=== PATIENT | female | born 1970 ===

== ENCOUNTER 2020-02-27 12:00 | Emergency (ER) | payer OTHER, SELFPAY ==
[2020-02-27 13:36] VITALS: BP 168/113; PULSE 74; RESP 16; TEMP 36; O2SAT 99; BMI 29.0
[2020-02-27 14:58] LABS: Glucose Urine UA NEG (NEG); Leukocyte Esterase Urine NEG (NEG); Nitrite Urine NEG (NEG); Urine Blood NEG (NEG); Urine Ketones NEG (NEG); Urine Protein NEG (NEG-TRACE)
[2020-02-27 15:02] LABS: Appearance Urine CLEAR; Color Urine YELLOW
== END 2020-02-27 14:21 | disposition left against medical advice (07) ==
LOC: HO.ED 03-02 07:27
PROVIDERS: Emergency Provider Emergency Medicine; PCP Emergency Medicine
DX: R10.9 Unspecified abdominal pain (principal); R68.83 Chills (without fever)
CPT/HCPCS: 81003; 99282; 99283

== ENCOUNTER 2020-03-02 09:58 | Outpatient (REF) | payer OTHER, SELFPAY ==
--- NOTE | 2020-03-02 10:26 | US_ITS ---
EXAMINATION: US RENAL CLINICAL INFORMATION: Renal stones. COMPARISON: Renal ultrasound dated 09/09/2019. TECHNIQUE: Real-time imaging of the kidneys and bladder. FINDINGS: RIGHT KIDNEY: 10.3 x 5.2 x 4.7 cm (SAG x AP x TRV). An echogenic focus in the upper pole measures 0.5 cm. A lower pole echogenic focus measures 0.5 cm. No hydronephrosis. LEFT KIDNEY: 9.9 x 5.1 x 5 cm (SAG x AP x TRV). An interpolar echogenic focus measures 0.6 cm. IMPRESSION: Nonobstructing intrarenal calculi bilaterally as detailed above..
== END 2020-03-02 09:59 | disposition home or self-care (01) ==
LOC: HO.US 09:58
PROVIDERS: Visit Provider Urology
DX: N20.0 Calculus of kidney (principal)
CPT/HCPCS: 76775

== ENCOUNTER 2020-05-25 12:58 | Outpatient (REF) | payer OTHER, SELFPAY ==
--- NOTE | 2020-05-25 13:05 | XR_ITS ---
EXAMINATION: XR KNEE, LEFT CLINICAL INFORMATION: Left knee pain COMPARISON: Radiographs left knee 03/15/2019 TECHNIQUE: Four views of the left knee. FINDINGS: There is no fracture, dislocation, or suprapatellar effusion. Hoffa's fat pad appears normal. There is no focal joint narrowing or erosive change or chondrocalcinosis. Bony mineralization appears normal. XR/XR knee LT 4V IMPRESSION: Unremarkable left knee.
== END 2020-05-25 12:59 | disposition home or self-care (01) ==
LOC: HO.XRAY 12:58
PROVIDERS: PCP Registered Nurse Community Health; Visit Provider Registered Nurse Community Health
DX: M25.562 Pain in left knee (principal)
CPT/HCPCS: 73564

== ENCOUNTER → 2020-06-15 09:26 | Outpatient (BNVA) | payer OTHER, SELFPAY | PROVIDERS: PCP Emergency Medicine; Visit Provider Orthopaedic Surgery | DX: M22.2X2 Patellofemoral disorders, left knee (principal) | CPT/HCPCS: 99202 ==

== ENCOUNTER 2020-07-06 12:31 | Outpatient (REF) | payer OTHER, SELFPAY ==
--- NOTE | ~2020-07-06 | CT_ITS ---
EXAMINATION: CT ABDOMEN AND PELVIS WITHOUT AND WITH CONTRAST CLINICAL INFORMATION: Interstitial cystitis COMPARISON: Previous renal ultrasound most recent February [address] of the abdomen and pelvis May 2018 TECHNIQUE: Multidetector volumetric imaging was performed of the abdomen and pelvis before and after the IV administration of 85 mL of Omnipaque 300 intravenous contrast. Sagittal and coronal reformatted images were obtained on the technologist's workstation. This CT examination was performed using dose optimization techniques as appropriate, variously including the following: *Automated exposure control *Adjustment of mA and/or kV according to patient size (this includes techniques or standardized protocols for targeted exams where dose is matched to indication/reason for exam; i.e. extremities or head) *Use of iterative reconstruction technique DLP: 754 mGy-cm FINDINGS: LUNG BASES: The visualized lung bases are unremarkable. LIVER, GALLBLADDER, AND BILIARY TREE: The liver is normal in size, shape, and attenuation. No focal hepatic lesion or biliary ductal dilatation is present. There are small gallstones in the gallbladder. PANCREAS: Unremarkable SPLEEN: Unremarkable ADRENAL GLANDS: Unremarkable KIDNEYS AND URETERS: There are small bilateral renal stones. There are 4 2 mm stones in the right kidney, 3 in the upper pole and one in the lower pole. There are 2 small adjacent 2 mm stones in the upper pole the left kidney and question third 1 mm stone in the upper pole. No hydronephrosis, ureteral dilatation or ureteral stone is seen. There 2 small 5 mm mm low-attenuation lesions in the lower pole of the right kidney and upper pole of the left kidney. These are too small to definitively characterize but probably represent small cysts. BLADDER: The bladder is not optimally distended but appears unremarkable. The bladder wall does not appear thickened. GASTROINTESTINAL TRACT: There is stool throughout the colon suggestive of constipation. There is mild diverticulosis of the colon. No dilated loops of bowel to suggest obstruction are seen. The appendix is unremarkable. The stomach ABDOMINAL WALL: No significant hernia is appreciated. LYMPH NODES: Normal VASCULAR: Unremarkable PELVIC VISCERA: The uterus appears to have been removed. No pelvic mass is seen. OSSEOUS STRUCTURES: There are degenerative changes at the hip joints. CT/CT abdomen pelvis wo/w con IMPRESSION: Small bilateral renal stones. Stool throughout the colon suggestive of constipation. Gallstones.
[2020-07-06] MEDS: iohexoL 350 MG/ML 100 ML INFUS..BTL IV (15:21)
[2020-07-06] MEDS: Barium Sulfate Oral (Berry) 450 ML ORAL.SUSP 900 ML PO (15:21)
== END 2020-07-06 12:32 | disposition home or self-care (01) ==
LOC: HO.CT 12:31
PROVIDERS: Visit Provider Registered Nurse Community Health
DX: R10.30 Lower abdominal pain, unspecified (principal); N30.10 Interstitial cystitis (chronic) without hematuria
CPT/HCPCS: 74178; Q9967

== ENCOUNTER → 2020-08-19 13:15 | Outpatient (BNVA) | payer OTHER, SELFPAY | PROVIDERS: PCP Registered Nurse Community Health; Visit Provider Internal Medicine Gastroenterology | DX: Z13.89 Encounter for screening for other disorder (principal) | CPT/HCPCS: Q3014 ==

== ENCOUNTER 2020-10-06 13:05 | Outpatient (REF) | payer OTHER, SELFPAY ==
--- NOTE | ~2020-10-06 | MM_ITS ---
EXAMINATION: MM SCREENING DIGITAL BREAST TOMOSYNTHESIS, BILATERAL CLINICAL INFORMATION: Screening. Asymptomatic. The lifetime risk of breast cancer based on the Tyrer-Cuzick Model is 7%. COMPARISON: Mammography: 07/19/2019, 08/30/2017, 05/26/2016 TECHNIQUE: Digital breast tomosynthesis is performed in both the craniocaudal and mediolateral oblique views along with computer-aided detection (CAD). Synthesized 2D images are generated from the tomosynthesis. FINDINGS: There are scattered areas of fibroglandular density (ACR BI-RADS breast composition Category b). There are no significant masses, abnormal calcifications, or other abnormalities. The axilla and skin contours are unremarkable. There are no significant changes from prior studies. MM/MM tomosynthesis screening BI IMPRESSION: No mammographic evidence of malignancy. ASSESSMENT: BI-RADS 1: Negative RECOMMENDATION: Routine annual mammography screening. This patient's information was entered into a reminder system with a target due date for their next mammogram.
== END 2020-10-06 13:06 | disposition home or self-care (01) ==
LOC: HO.MAMMO 13:05
PROVIDERS: PCP Registered Nurse Community Health; Visit Provider Registered Nurse Community Health
DX: Z12.31 Encounter for screening mammogram for malignant neoplasm of breast (principal)
CPT/HCPCS: 77063; 77067; 99212

== ENCOUNTER 2020-12-28 10:44 | Outpatient (REF) | payer OTHER, SELFPAY ==
[2020-12-28 13:17] LABS: MANUAL DIFF FLAG NO
[2020-12-28 13:24] LABS: Eosinophils Absolute Auto 0.2 X10*3/uL (0.0-0.4); Eosinophils Percent Auto 3.9 % (0-4); Hematocrit 43.2 % (37-47); Hemoglobin 13.8 g/dl (12.0-16.0); Imm Gran Abs Auto 0.01 X10*3/uL (0.00-0.03); Imm Gran Pct Auto 0.3 % (0.0-0.4); Lymphocytes Absolute Auto 1.3 X10*3/uL (1.2-4.9); Lymphocytes Percent Auto 33.1 % (20-40); Mean Corpuscular HGB Conc 31.9 g/dl (31.0-35.0); Mean Corpuscular Hemoglobin 27.8 pg (27.0-33.0); Mean Corpuscular Volume 86.9 fL (80-98); Monocytes Absolute Auto 0.3 X10*3/uL (0.1-1.2); Monocytes Percent Auto 8.1 % (2-11); Neutrophils Absolute Auto 2.1 X10*3/uL (2.0-8.3); Neutrophils Percent Auto 53.6 % (45-73); Platelet Count 217 X10*3/uL (160-400); Red Blood Count 4.97 X10*6/uL (4.20-5.50); Red Cell Distribution Width 12.6 % (11.0-16.0); White Blood Count 3.8 X10*3/uL (4.8-10.8)
[2020-12-28 13:52] LABS: Alanine Aminotransferase 36 U/L (0-31); Albumin Level 4.3 g/dL (3.5-5.0); Alkaline Phosphatase 86 U/L (39-117); Anion Gap 14 (12-20); Aspartate Amino Transferase 29 U/L (5-31); Bilirubin Total 0.7 mg/dL (0.0-1.0); Blood Urea Nitrogen 13 mg/dL (9-16); Calcium 10.4 mg/dL (8.4-10.2); Carbon Dioxide 26 mmol/L (22-29); Chloride 105 mmol/L (96-108); Estimated Glomerular Filt Rate 49; Glucose Random 81 mg/dL (60-115); Sodium 140 mmol/L (135-145); Total Protein 7.3 g/dL (6.5-8.0)
== END 2020-12-28 10:45 | disposition home or self-care (01) ==
LOC: HO.LAB 10:44
PROVIDERS: PCP Registered Nurse Community Health; Visit Provider Nurse Practitioner
DX: Z01.818 Encounter for other preprocedural examination (principal); K52.9 Noninfective gastroenteritis and colitis, unspecified
CPT/HCPCS: 36415; 80053; 85025; 99212

== ENCOUNTER 2021-01-29 11:35 | Emergency (ER) | payer OTHER, SELFPAY ==
--- NOTE | ~2021-01-29 | CT_ITS ---
EXAMINATION: CT ANGIOGRAM NECK WITH CONTRAST CT ANGIOGRAM BRAIN WITH CONTRAST CLINICAL INFORMATION: Left-sided weakness. COMPARISON: Noncontrast head CT performed just prior. TECHNIQUE: Test bolus sequences followed by intravenous administration 100 mL of Omnipaque 350. Helical imaging was performed in the axial plane from the thoracic inlet to the skull vertex. Delayed postcontrast imaging of the head was also performed. The data was processed at the angiography technologist workstation for generation of MIP sequences. Angled MIPs and volume rendered reformatted images were also generated at an offline 3D workstation. Stenoses are assessed in accordance with NASCET criteria unless otherwise indicated. This CT examination was performed using dose optimization techniques as appropriate, variously including the following: *Automated exposure control *Adjustment of mA and/or kV according to patient size (this includes techniques or standardized protocols for targeted exams where dose is matched to indication/reason for exam; i.e. extremities or head) *Use of iterative reconstruction technique DLP: 1277 mGy-cm FINDINGS: Head CT: No intracranial hemorrhage, extra-axial collection, mass effect, or definite territorial infarction is seen. Patchy and partly confluent areas of hypoattenuation are seen within the cerebral white matter presumably reflecting chronic microangiopathy. There is no well-defined is cytotoxic edema at this time. No abnormal enhancement is seen. The dural venous sinuses are normally opacified. The ventricles are normal in size and configuration without evidence of hydrocephalus. There is a mucosal retention cyst along the left maxillary sinus floor. Neck CTA: The aortic arch and great vessel origins are patent. The bilateral common and internal carotid arteries are patent. Minimal atheromatous changes are seen at the carotid bifurcations but without associated stenosis. The cervical segments of both internal carotid arteries are widely patent. No carotid siphon stenosis is seen. The bilateral vertebral arteries appear codominant and are patent. Head CTA: The anterior and posterior circulations are patent. Mild atheromatous changes with no more than mild luminal narrowing. No aneurysm is seen. Non-vascular findings: Left lobe of the thyroid gland is expanded by 2.9 cm hypodense nodule which extends into the upper portion of the mediastinum. The imaged portions of the upper lungs are clear. CT/CT angio head neck IMPRESSION: CT head: No intracranial hemorrhage or large acute infarction. Background changes of chronic microangiopathy. CTA neck: No hemodynamically significant stenosis in the major arteries of the neck. CTA head: No large vessel occlusion or significant stenosis within the intracranial circulation. Additional findings: Nodule in the left lobe of the thyroid gland measuring 2.9 cm for which dedicated thyroid ultrasound is recommended based on size criteria. This critical result was discussed with Dr. Hong on 01/29/2021 1:39 PM, and it was ascertained that the content and urgency of the report was understood at the time of direct communication.
--- NOTE | ~2021-01-29 | CT_ITS ---
EXAMINATION: CT HEAD WITHOUT CONTRAST CLINICAL INFORMATION: Left-sided weakness COMPARISON: None TECHNIQUE: Contiguous axial imaging was performed from the skull base to vertex without intravenous administration of contrast. This CT examination was performed using dose optimization techniques as appropriate, variously including the following: *Automated exposure control *Adjustment of mA and/or kV according to patient size (this includes techniques or standardized protocols for targeted exams where dose is matched to indication/reason for exam; i.e. extremities or head) *Use of iterative reconstruction technique DLP: 578 mGy-cm FINDINGS: There is some faint diminished density which is asymmetric adjacent to the anterior right lateral ventricle involving the subcortical white matter of the right frontal lobe. This is somewhat more prominent than other regions of periventricular white matter low density and may represent an evolving infarct. There is no evidence of acute intracranial hemorrhage. No abnormal mass effect or midline shift is seen. Flores to white matter differentiation is well preserved. No extra-axial fluid collections are identified. The ventricles are normal in size. There is bilateral periventricular white matter low density consistent with microangiopathy. The osseous structures and soft tissues are normal. The mastoid air cells and visualized portions of the paranasal sinuses are well aerated. CT/CT head/brain wo con IMPRESSION: Findings consistent with microangiopathy. Somewhat asymmetric region of low density in subcortical white matter of the right frontal lobe. This may represent evolving infarct.
[2021-01-29 11:38] VITALS: BP 136/103; PULSE 84; RESP 18; TEMP 36.1; O2SAT 97; BMI 26.9
--- NOTE | 2021-01-29 11:43 | ED_ITS ---
HPI - Neuro Symptoms/Deficit General Chief Complaint: Extremity Problem Stated Complaint: WEAKNESS Time Seen by Provider: 01/29/21 11:38 Source: patient Mode of arrival: ambulatory Limitations: no limitations History of Present Illness Onset (ago): hour(s) (over 24 hours ago) Location: left arm and left leg History of same: No Severity: moderate Quality: weak and tingling Relieving factors: none Exacerbating factors: none Context: sudden onset (woke up this way) On Anticoagulants: No Associated symptoms: denies other symptoms (no precipitating event no pain no trauma no neck injury no prior episodes of this) Treatments Prior to Arrival: none Related Data Home Medications Medication Instructions Recorded Confirmed gabapentin 300 mg capsule 300 mg PO DAILY 06/15/20 08/19/20 cyclobenzaprine 10 mg tablet 10 mg PO TID 10/06/20 Previous Rx's Medication Instructions Recorded bisacodyl 5 mg tablet,delayed 10 mg PO BEDTIME 2 Days #4 tab 12/28/20 release (Dulcolax (bisacodyl)) peg 3350-electrolytes 236 240 ml PO Q10M 1 Days #4000 ml 12/28/20 gram-22.74 gram-6.74 gram-5.86 gram solution (Golytely) pentosan polysulfate sodium 100 mg 200 mg PO BID 30 Days #120 cap 12/28/20 capsule (Elmiron) Allergies Allergy/AdvReac Type Severity Reaction Status Date / Time trimethoprim [From Bactrim] Allergy Mild HIVES Verified 12/28/20 10:59 Sulfa (Sulfonamide Allergy Unknown Hives Verified 12/28/20 10:59 Antibiotics) Review of Systems Review of Systems: Constitutional : No Weight loss, No Fever, No Chills, No Fatigue, No Malaise ENT/Mouth : No sore throat, No Rhinorrhea Eyes: No Eye Pain, No Swelling, No Redness Cardiovascular : No Chest Pain, No SOB, No Dyspnea on Exertion, No Orthopnea, No Edema, No Palpitations Respiratory : No Cough, No Sputum, No Wheezing Gastrointestinal : No Nausea, No Vomiting, No Diarrhea, No Constipation, No abdominal Pain, No Hematochezia, No Melena Genitourinary : No Dysuria, No Urinary Frequency, No Hematuria, Musculoskeletal : No joint pain, No Myalgias, No Joint Swelling Skin : No Skin Lesions, No rash Neuro : pos Weakness, pos Numbness, No Dizziness, No Headache Psych : No Anxiety/Panic, No Depression Heme/Lymph: No Bruising, No Bleeding,No Lymphadenopathy Endocrine : No Polyuria, No Polydipsia All other systems reviewed and are negative [facility] Past Medical History Attestation statement: The following information was validated with the patient. 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 Father No problems noted. Social History Social History (Updated 01/29/21 @ 11:43 by Leandra Hong DO) Household Members: None Alcohol intake: never Patient Tobacco Use Status: Never used Tobacco Advance Directives: No Advance Directives Information Provided: Yes Current occupational status: disabled Current occupation: right handed Physical Exam Vital Signs: Vital Signs: Last Vital Signs Temp 97.0 F 01/29/21 11:38 Pulse 73 01/29/21 13:58 Resp 18 01/29/21 13:58 BP 144/96 H 01/29/21 13:58 Pulse Ox 99 01/29/21 13:58 Body Mass Index 26.9 Appearance: Alert. Oriented X3. No acute distress. Flat affect Eyes: Pupils equal, round and reactive to light. ENT: Pharynx normal. Neck: Normal inspection. Neck supple. CVS: Normal heart rate and rhythm. Pulses normal. Respiratory: No respiratory distress. Breath sounds normal. Abdomen: Soft and non-tender. Skin: Skin warm and dry. Normal skin color. Normal skin turgor. Extremities: No lower extremity edema. No calf ttp Neuro: Oriented X 3. LUE and LLE 4/5 some drift LUE, reports tingling forearm down to LUE, CN2-12 intact. Course Course Course Narrative: call from Radiology 137pm - no acute LVO, vessels are open. nodule in thyroid gland MRI ordered given her symptoms and age, also initial CT showed abnormality patient aware of CT scan findings and my concern for stroke - she states she will not stay and wait for MRI, we offered food, pain medications for her arthritis but she states she still wont' stay. she is alert and oriented x 3, answering questions appropriately. States she will talk to her doctor about outpatient MRI agrees to take baby aspirin at home. She notes she is aware we are worried in regards to stroke MDM - Neuro Symptoms/Deficit MDM Narrative Medical decision making narrative: 50 yo female with hx of IBS comes in with 24+ hours of L sided UE and LE weakness denies trauma denies neck strain. Reports tingling in L forearm. She is withdrawn and has a flat affect. At this time labs, CT and CTA for stroke ordered, possible stroke vs other pathology - dispo per results and findings. Given duration of symptoms a minimum known 24 hours of onset she is not a candidate for tPa or thrombectomy. Patient didn't get evaluated yesterday as she hoped her symptoms would go away Lab Data Result diagrams: 01/29/21 12:32 01/29/21 12:32 Labs: Lab Results 01/29/21 01/29/21 01/29/21 Range/Units 12:31 12:31 12:31 WBC (4.8-10.8) X10*3/uL RBC (4.20-5.50) X10*6/uL Hgb (12.0-16.0) g/dl Hct (37-47) % MCV (80-98) fL MCH (27.0-33.0) pg MCHC (31.0-35.0) g/dl RDW (11.0-16.0) % Plt Count (160-400) X10*3/uL MPV (9.4-12.3) fL Immature Gran % (Auto) (0.0-0.4) % Neut % (Auto) (45-73) % Lymph % (Auto) (20-40) % [place] % (Auto) (2-11) % Eos % (Auto) (0-4) % Baso % (Auto) (0-2) % Lymph # (Auto) (1.2-4.9) X10*3/uL [place] # (Auto) (0.1-1.2) X10*3/uL Eos # (Auto) (0.0-0.4) X10*3/uL Baso # (Auto) (0.0-0.2) X10*3/uL Abs Immat Gran (auto) (0.00-0.03) X10*3/uL Absolute Neuts (auto) (2.0-8.3) X10*3/uL Absolute Nucleated RBC (0.0-0.012) X10*3/uL Nucleated RBC % (auto) (0.0-0.2) /100WBC ESR 13 (0-20) MM/HR PT 12.0 (9.9-13.0) SEC INR 1.1 (0.9-1.1) APTT 42.3 H (24.1-38.0) SEC Sodium (135-145) mmol/L Potassium (3.3-5.1) mmol/L Chloride (96-108) mmol/L Carbon Dioxide (22-29) mmol/L Anion Gap (12-20) BUN (9-16) mg/dL Creatinine (0.5-1.4) mg/dL Estim Creat Clear Calc Estimated GFR Random Glucose (60-115) mg/dL Calcium (8.4-10.2) mg/dL Magnesium (1.6-2.6) mg/dL Total Bilirubin (0.0-1.0) mg/dL Direct Bilirubin (0.0-0.5) mg/dL AST (5-31) U/L ALT (0-31) U/L Alkaline Phosphatase (39-117) U/L Troponin I High Sens (<3.5-17.0) ng/L C-Reactive Protein (< or = 0.50) mg/dL Total Protein (6.5-8.0) g/dL Albumin (3.5-5.0) g/dL Lipase (8-78) U/L TSH (0.32-4.0) uIU/mL COVID-19 ([facility]) Negative (Negative) COVID-19 Clin Com See Note 01/29/21 01/29/21 01/29/21 Range/Units 12:32 12:32 12:32 WBC 3.7 L (4.8-10.8) X10*3/uL RBC 4.82 (4.20-5.50) X10*6/uL Hgb 13.8 (12.0-16.0) g/dl Hct 41.3 (37-47) % MCV 85.7 (80-98) fL MCH 28.6 (27.0-33.0) pg MCHC 33.4 (31.0-35.0) g/dl RDW 12.8 (11.0-16.0) % Plt Count 189 (160-400) X10*3/uL MPV 10.7 (9.4-12.3) fL Immature Gran % (Auto) 0.3 (0.0-0.4) % Neut % (Auto) 52.0 (45-73) % Lymph % (Auto) 33.4 (20-40) % [place] % (Auto) 9.2 (2-11) % Eos % (Auto) 4.3 H (0-4) % Baso % (Auto) 0.8 (0-2) % Lymph # (Auto) 1.2 (1.2-4.9) X10*3/uL [place] # (Auto) 0.3 (0.1-1.2) X10*3/uL Eos # (Auto) 0.2 (0.0-0.4) X10*3/uL Baso # (Auto) 0.0 (0.0-0.2) X10*3/uL Abs Immat Gran (auto) 0.01 (0.00-0.03) X10*3/uL Absolute Neuts (auto) 1.9 L (2.0-8.3) X10*3/uL Absolute Nucleated RBC 0.000 (0.0-0.012) X10*3/uL Nucleated RBC % (auto) 0.0 (0.0-0.2) /100WBC ESR (0-20) MM/HR PT (9.9-13.0) SEC INR (0.9-1.1) APTT (24.1-38.0) SEC Sodium 141 (135-145) mmol/L Potassium 5.2 H (3.3-5.1) mmol/L Chloride 108 (96-108) mmol/L Carbon Dioxide 25 (22-29) mmol/L Anion Gap 13 (12-20) BUN 19 H (9-16) mg/dL Creatinine 1.11 (0.5-1.4) mg/dL Estim Creat Clear Calc 55.8 Estimated GFR 52 Random Glucose 96 (60-115) mg/dL Calcium 10.2 (8.4-10.2) mg/dL Magnesium 2.1 (1.6-2.6) mg/dL Total Bilirubin 0.8 (0.0-1.0) mg/dL Direct Bilirubin 0.2 (0.0-0.5) mg/dL AST 28 (5-31) U/L ALT 21 (0-31) U/L Alkaline Phosphatase 80 (39-117) U/L Troponin I High Sens (<3.5-17.0) ng/L C-Reactive Protein (< or = 0.50) mg/dL Total Protein 6.9 (6.5-8.0) g/dL Albumin 4.1 (3.5-5.0) g/dL Lipase 23 (8-78) U/L TSH 0.84 (0.32-4.0) uIU/mL COVID-19 ([facility]) (Negative) COVID-19 Clin Com 01/29/21 01/29/21 Range/Units 12:32 12:32 WBC (4.8-10.8) X10*3/uL RBC (4.20-5.50) X10*6/uL Hgb (12.0-16.0) g/dl Hct (37-47) % MCV (80-98) fL MCH (27.0-33.0) pg MCHC (31.0-35.0) g/dl RDW (11.0-16.0) % Plt Count (160-400) X10*3/uL MPV (9.4-12.3) fL Immature Gran % (Auto) (0.0-0.4) % Neut % (Auto) (45-73) % Lymph % (Auto) (20-40) % [place] % (Auto) (2-11) % Eos % (Auto) (0-4) % Baso % (Auto) (0-2) % Lymph # (Auto) (1.2-4.9) X10*3/uL [place] # (Auto) (0.1-1.2) X10*3/uL Eos # (Auto) (0.0-0.4) X10*3/uL Baso # (Auto) (0.0-0.2) X10*3/uL Abs Immat Gran (auto) (0.00-0.03) X10*3/uL Absolute Neuts (auto) (2.0-8.3) X10*3/uL Absolute Nucleated RBC (0.0-0.012) X10*3/uL Nucleated RBC % (auto) (0.0-0.2) /100WBC ESR (0-20) MM/HR PT (9.9-13.0) SEC INR (0.9-1.1) APTT (24.1-38.0) SEC Sodium (135-145) mmol/L Potassium (3.3-5.1) mmol/L Chloride (96-108) mmol/L Carbon Dioxide (22-29) mmol/L Anion Gap (12-20) BUN (9-16) mg/dL Creatinine (0.5-1.4) mg/dL Estim Creat Clear Calc Estimated GFR Random Glucose (60-115) mg/dL Calcium (8.4-10.2) mg/dL Magnesium (1.6-2.6) mg/dL Total Bilirubin (0.0-1.0) mg/dL Direct Bilirubin (0.0-0.5) mg/dL AST (5-31) U/L ALT (0-31) U/L Alkaline Phosphatase (39-117) U/L Troponin I High Sens 11.2 (<3.5-17.0) ng/L C-Reactive Protein 0.17 (< or = 0.50) mg/dL Total Protein (6.5-8.0) g/dL Albumin (3.5-5.0) g/dL Lipase (8-78) U/L TSH (0.32-4.0) uIU/mL COVID-19 ([facility]) (Negative) COVID-19 Clin Com ECG Data Attestation: I personally reviewed and interpreted this ECG as follows: ECG interpretation date: 01/29/21 ECG interpretation time: 12:04 Interpretation: Rate: 70 Rhythm: NSR [place]: normal Normal P waves. Normal TELMA. Normal QRS complex. ST T wave : no NIA, normal qTC: normal prior studies: no acute ischemia The study has been interpreted contemporaneously by me. . NIH Stroke Scale Internal: Initial- Upon Arrival Level of Consciousness: Alert Level of Consciousness Questions: Answers both questions correctly Level of Consciousness Commands: Performs both tasks correctly Best Gaze: Normal Visual: No visual loss Facial Palsy: Normal Motor Arm (Right): No drift Motor Arm (Left): Drift Motor Leg (Right): No drift Motor Leg (Left): Drift Limb Ataxia: Absent Sensory: Mild to moderate sensory loss Best Language: No aphasia Dysarthia: Normal Extinction and Inattention: No abnormality Score: 3 Discharge Plan Discharge Clinical Impression: Acute left-sided muscle weakness, Arm paresthesia, left, Microangiopathy Patient Disposition: Home, Self-Care Instructions: Paresthesia (ED), Weakness (ED) Additional Instructions: Nodule in the left lobe of the thyroid gland measuring 2.9 cm for which dedicated thyroid ultrasound is recommended based on size criteria. please have your doctor order this non-emergent test it was recommended you get a MRI of your brain given your CT scans are abnormal and there is a real concern for stroke. You refused to take the test in the Emergency Department. Please take an aspirin daily. Your presentation was very concerning for a stroke but you refused further testing in the Emergency Department to confirm. Prescriptions: No Action Elmiron 100 mg capsule 200 mg PO BID 30 Days Qty: 120 RF: 6 gabapentin 300 mg capsule 300 mg PO DAILY RF: 0 cyclobenzaprine 10 mg tablet 10 mg PO TID RF: 0 peg 3350-electrolytes [Golytely] 236-22.74-6.74 -5.86 gram recon soln 240 ml PO Q10M 1 Days Qty: 4000 RF: 0 bisacodyl [Dulcolax (bisacodyl)] 5 mg tablet,delayed release (DR/EC) 10 mg PO BEDTIME 2 Days Qty: 4 RF: 0 Referrals: Kamala Gregory NP [Primary Care Provider] - 2 days (please call today or Monday you need a MRI of your brain)
--- NOTE | 2021-01-29 11:44 | ECG_ITS ---
Test Reason : WEAKNESS Blood Pressure : / mmHG Vent. Rate : 070 BPM Atrial Rate : 070 BPM P-R Int : 128 ms QRS Dur : 090 ms QT Int : 408 ms P-R-T Axes : 042 024 020 degrees QTc Int : 440 ms Normal sinus rhythm Possible Left atrial enlargement Borderline ECG When compared with ECG of 04-APR-2017 13:27, Heart rate has increased Nonspecific T wave abnormality is no longer Present Referred By: Leandra Hong Electronically Signed By:HAILEY LANDA
--- NOTE | 2021-01-29 12:36 | PC.NURSE ---
IV placed and labs obtained. Pt notified that the next step is CT scan.
[2021-01-29 12:41] LABS: MANUAL DIFF FLAG NO
[2021-01-29 12:43] LABS: Basophils Percent Auto 0.8 % (0-2); Eosinophils Absolute Auto 0.2 X10*3/uL (0.0-0.4); Eosinophils Percent Auto 4.3 % (0-4); Hematocrit 41.3 % (37-47); Hemoglobin 13.8 g/dl (12.0-16.0); Imm Gran Abs Auto 0.01 X10*3/uL (0.00-0.03); Imm Gran Pct Auto 0.3 % (0.0-0.4); Lymphocytes Absolute Auto 1.2 X10*3/uL (1.2-4.9); Lymphocytes Percent Auto 33.4 % (20-40); Mean Corpuscular HGB Conc 33.4 g/dl (31.0-35.0); Mean Corpuscular Hemoglobin 28.6 pg (27.0-33.0); Mean Corpuscular Volume 85.7 fL (80-98); Mean Platelet Volume 10.7 fL (9.4-12.3); Monocytes Absolute Auto 0.3 X10*3/uL (0.1-1.2); Monocytes Percent Auto 9.2 % (2-11); Neutrophils Absolute Auto 1.9 X10*3/uL (2.0-8.3); Platelet Count 189 X10*3/uL (160-400); Red Blood Count 4.82 X10*6/uL (4.20-5.50); Red Cell Distribution Width 12.8 % (11.0-16.0); White Blood Count 3.7 X10*3/uL (4.8-10.8)
[2021-01-29 12:49] LABS: INTERNATIONAL NORM RATIO 1.1 (0.9-1.1)
[2021-01-29 12:51] LABS: Partial Thromboplastin Time 42.3 SEC (24.1-38.0)
[2021-01-29 13:01] LABS: Anion Gap 13 (12-20); Blood Urea Nitrogen 19 mg/dL (9-16); C Reactive Protein 0.17 mg/dL (< or = 0.50); Calcium 10.2 mg/dL (8.4-10.2); Carbon Dioxide 25 mmol/L (22-29); Chloride 108 mmol/L (96-108); Creatinine Clr Calc Pharmacy 55.8; Estimated Glomerular Filt Rate 52; Glucose Random 96 mg/dL (60-115); Potassium 5.2 mmol/L (3.3-5.1); Sodium 141 mmol/L (135-145)
[2021-01-29 13:05] LABS: Troponin-I High Sensitivity 11.2 ng/L (<3.5-17.0)
[2021-01-29 13:07] LABS: Alanine Aminotransferase 21 U/L (0-31); Albumin Level 4.1 g/dL (3.5-5.0); Alkaline Phosphatase 80 U/L (39-117); Aspartate Amino Transferase 28 U/L (5-31); Bilirubin Direct 0.2 mg/dL (0.0-0.5); Bilirubin Total 0.8 mg/dL (0.0-1.0); Lipase 23 U/L (8-78); Magnesium 2.1 mg/dL (1.6-2.6); Total Protein 6.9 g/dL (6.5-8.0)
[2021-01-29] MEDS: iohexoL 350 MG/ML 100 ML INFUS..BTL IV (13:09)
[2021-01-29 13:24] LABS: Erythrocyte Sedimentation Rate 13 MM/HR (0-20)
[2021-01-29 13:24] LABS: TSH reflex Free T4 0.84 uIU/mL (0.32-4.0)
[2021-01-29 13:30] LABS: COVID-19 Test Negative (Negative)
[2021-01-29] MEDS: 0.9 % Sodium Chloride 500 ML IV (13:55)
--- NOTE | 2021-01-29 13:55 | PC.NURSE ---
Pt states that she feels her left hand tingling is improving at this time since she first came in.
[2021-01-29 13:58] VITALS: BP 144/96; PULSE 73; RESP 18; O2SAT 99
--- NOTE | 2021-01-29 15:37 | PC.NURSE ---
Pt left against medical advice. The risks of leaving were explained to her by and this RN. Pt still wished to leave as the wait time was too long. She stated that she was too hungry and cold. Food and more warm blankets offered. Pt declined and stated that there was nothing we could do that would convince her to wait. She stated that though she was happy with her care she just could no longer wait for MRI. Earliest time MRI could take pt was 6pm according to anatomic pathology manager.
== END 2021-01-29 15:37 | disposition home or self-care (01) ==
PROVIDERS: Emergency Provider Emergency Medicine; PCP Registered Nurse Community Health
DX: M62.81 Muscle weakness (generalized) (principal); R20.2 Paresthesia of skin; I73.9 Peripheral vascular disease, unspecified; Z20.822 Contact with and (suspected) exposure to COVID-19
CPT/HCPCS: 36415; 70450; 70496; 70498; 80048; 80076; 83690; 83735; 84443; 84484; 85025; 85610; 85652; 85730; 86140; 87635; 93005; 96360; 99284; 99285; Q9967

== ENCOUNTER 2021-02-03 15:51 | Outpatient (REF) | payer OTHER, SELFPAY ==
--- NOTE | ~2021-02-03 | US_ITS ---
EXAMINATION: US RETROPERITONEAL LIMITED (RENAL ONLY) CLINICAL INFORMATION: Calculus kidney. COMPARISON: CT abdomen and pelvis 07/06/2020. Renal ultrasound 03/02/2020 and 09/09/2019. KUB 08/28/2019 and 10/10/2018. TECHNIQUE: Real-time imaging of the kidneys. FINDINGS: RIGHT KIDNEY: 9.5 x 5.2 x 3.7 cm (SAG x AP x TRV). The kidney is normal in size, contour, and echogenicity. Renal cortical thickness is normal. There is a 3 mm echogenic density in the lower pole suggestive of a stone. No focal parenchymal lesions or hydronephrosis. LEFT KIDNEY: 9.9 x 4.0 x 3.5 cm (SAG x AP x TRV). The kidney is normal in size, contour, and echogenicity. Renal cortical thickness is normal. There are 3 mm echogenic densities in the mid and lower pole suggestive of stones. No focal parenchymal lesions or hydronephrosis. US/US renal BI IMPRESSION: Small bilateral renal stones.
== END 2021-02-03 15:52 | disposition home or self-care (01) ==
LOC: HO.US 15:51
PROVIDERS: Visit Provider Urology
DX: N20.0 Calculus of kidney (principal)
CPT/HCPCS: 76775

== ENCOUNTER 2021-02-17 18:37 | Outpatient (REF) | payer OTHER, SELFPAY ==
--- NOTE | ~2021-02-17 | MR_ITS ---
EXAMINATION: MRI OF THE BRAIN WITHOUT CONTRAST CLINICAL INFORMATION: Left nondominant side hemiplegia. COMPARISON: CTA of the head and neck 01/29/2021. TECHNIQUE: MRI of the brain was obtained using routine sequences without contrast. FINDINGS: There is an area of increased diffusion signal without corresponding low ADC map signal in the right posterior periventricular white matter, with corresponding hyperintense T2 and FLAIR signal. This is consistent with a subacute lesion. No areas of restricted diffusion are demonstrated. No mass effect or midline shift is seen. The ventricles and sulci are commensurately prominent consistent with diffuse volume loss. There are relatively extensive scattered areas of hyperintense T2 and FLAIR signal in the periventricular and subcortical white matter. These are nonspecific and may be consistent with chronic microvascular ischemic change, or with demyelination in the correct clinical setting. No extra-axial fluid collections are seen. The brainstem and cerebellum are normal. No pathologic magnetic susceptibility artifact is identified on the gradient refocused acquisition. The craniovertebral junction, marrow signal, and midline structures are normal. The major intracranial flow-voids at the level of the [place] are preserved. The dural venous sinus flow-voids are maintained. The mastoid air cells are well-aerated. There are retention cysts in the bilateral maxillary sinuses. MR/MR head/brain wo con IMPRESSION: 1. There is an area of increased diffusion signal without restriction in the right posterior periventricular white matter, consistent with a subacute lesion. There are also multiple scattered areas of hyperintense T2 and FLAIR signal in the periventricular and subcortical white matter which may be consistent with chronic microvascular ischemic changes or due to demyelination in the correct clinical setting. There is no evidence of hemorrhage.
== END 2021-02-17 18:38 | disposition home or self-care (01) ==
LOC: HO.MRI 18:37
PROVIDERS: Visit Provider Registered Nurse Community Health
DX: G81.94 Hemiplegia, unspecified affecting left nondominant side (principal)
CPT/HCPCS: 70551

== ENCOUNTER 2021-04-01 09:59 | Outpatient (REF) | payer OTHER, SELFPAY ==
--- NOTE | ~2021-04-01 | US_ITS ---
EXAMINATION: US THYROID CLINICAL INFORMATION: Nontoxic single thyroid nodule COMPARISON: None TECHNIQUE: Linear transducer montgomery-scale and color Doppler examination with attention to the region of the thyroid. FINDINGS: SIZE: Measurements of the thyroid lobes and nodules are given in sagittal, anteroposterior and transverse dimensions respectively. Right Thyroid Lobe: 5.4 x 1.5 x 1.9 cm, volume 8.0 mL. Parenchyma: The gland echotexture is homogeneous. Thyroid vascularity is normal. Left Thyroid Lobe: 5.9 x 2.0 x 1.9 cm, volume 11.7 mL. Parenchyma: The gland echotexture is homogeneous. Thyroid vascularity is normal. Isthmus: 0.5 cm in maximum AP dimension. Estimated total number of nodules greater than or equal to 1 cm: 2. 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 Location: Left lower. Size: 3.1 x 3.1 x 2.8 cm, volume 13.8 mL. Nodule characteristics: Composition: Solid/almost completely solid (2). Echogenicity: Isoechoic (1). Shape: Not taller than wide (0). Margins: Smooth (0). Echogenic Foci: None (0). ACR TI-RADS total points: 3 ACR TI-RADS category: 3 2. Location: Left mid. Size: 0.6 x 0.6 x 0.4 cm, volume 0.07 mL. Nodule characteristics: Composition: Solid (2). Echogenicity: Hypoechoic (2). Shape: Not taller than wide (0). Margins: Smooth (0). Echogenic Foci: None (0). ACR TI-RADS total points: 4 ACR TI-RADS category: 4 3. Location: Left mid. Size: 0.8 x 0.4 x 0.3 cm, volume 0.06 mL. Nodule characteristics: Composition: Solid/almost completely solid (2). Echogenicity: Isoechoic (1). Shape: Not taller than wide (0). Margins: Smooth (0). Echogenic Foci: None (0). ACR TI-RADS total points: 3 ACR TI-RADS category: 3 4. Location: Right mid. Size: 1.4 x 1.0 x 0.7 cm, volume 0.54 mL. Nodule characteristics: Composition: Solid (2). Echogenicity: Hypoechoic (2). Shape: Not taller than wide (0). Margins: Smooth (0). Echogenic Foci: None (0). ACR TI-RADS total points: 4 ACR TI-RADS category: 4 5. Location: Right lower. Size: 0.9 x 0.8 x 0.8 cm, volume 0.30 mL. Nodule characteristics: Composition: Solid (2). Echogenicity: Hypoechoic (2). Shape: Not taller than wide (0). Margins: Smooth (0). Echogenic Foci: None (0). ACR TI-RADS total points: 4 ACR TI-RADS category: 4 NODES: No lymphadenopathy is seen in the tissue surrounding the thyroid gland. US/US thyroid IMPRESSION: Slightly enlarged left lobe. Bilateral nodules. According to the TI RADS criteria, fine-needle aspiration of the largest nodule in the inferior left lobe recommended. ACR TI-RADS RECOMMENDATION REFERENCE: Ultrasound-guided fine-needle aspiration, followup ultrasound, no further follow up. * TR1 (0 point) and TR 2 (2 points): No FNA or follow up * TR3 (3 points): FNA if more than or equal to 2.5 cm in maximum dimension, followup ultrasound in 1, 3 and 5 years if 1.5 to 2.4 cm in maximum dimension. * TR4 (4-6 points): FNA if more than or equal to 1.5 cm in maximum dimension, followup ultrasound in 1, 2, 3 and 5 years if 1 to 1.4 cm in maximum dimension. * TR5 (more than or equal to 7 points): FNA if more than or equal to 1 cm in maximum dimension, followup ultrasound every year for 5 years if 0.5 to 0.9 cm in maximum dimension. * TR3, TR4 or TR5 nodules that are below the size threshold for follow up receive no follow up.
== END 2021-04-01 10:00 | disposition home or self-care (01) ==
LOC: HO.US 09:59
PROVIDERS: Visit Provider Nurse Practitioner Family
DX: E04.1 Nontoxic single thyroid nodule (principal)
CPT/HCPCS: 76536

== ENCOUNTER → 2021-04-15 08:22 | Outpatient (BNVA) | payer OTHER, SELFPAY | PROVIDERS: Visit Provider Urology | DX: Z13.89 Encounter for screening for other disorder (principal) | CPT/HCPCS: Q3014 ==

== ENCOUNTER 2021-04-16 12:59 | Outpatient (REF) | payer OTHER, SELFPAY ==
[2021-04-18 01:21] LABS: Lyme Abs Screen <0.90 index
[2021-04-20 06:10] LABS: Anti Nuclear Antibody Screen NEGATIVE (NEGATIVE)
== END 2021-04-16 13:00 | disposition home or self-care (01) ==
LOC: HO.LAB 12:59
PROVIDERS: PCP Registered Nurse Community Health; Visit Provider Psychiatry & Neurology Neurology
DX: G37.9 Demyelinating disease of central nervous system, unspecified (principal)
CPT/HCPCS: 36415; 86038; 86039; 86617; 86618

== ENCOUNTER 2021-05-03 10:42 | Outpatient (REF) | payer OTHER, SELFPAY | END 2021-05-03 10:43 | disposition home or self-care (01) | LOC: HO.MDS 10:42 | PROVIDERS: PCP Registered Nurse Community Health; Visit Provider Psychiatry & Neurology Neurology | DX: G37.9 Demyelinating disease of central nervous system, unspecified (principal) | CPT/HCPCS: 96365; J2930 ==

== ENCOUNTER 2021-05-04 10:56 | Outpatient (REF) | payer OTHER, SELFPAY | END 2021-05-04 10:57 | disposition home or self-care (01) | LOC: HO.MDS 10:56 | PROVIDERS: PCP Registered Nurse Community Health; Visit Provider Psychiatry & Neurology Neurology | DX: G37.9 Demyelinating disease of central nervous system, unspecified (principal) | CPT/HCPCS: J2930 ==

== ENCOUNTER 2021-05-05 13:27 | Outpatient (REF) | payer OTHER, SELFPAY | END 2021-05-05 13:28 | disposition home or self-care (01) | LOC: HO.MDS 13:27 | PROVIDERS: PCP Registered Nurse Community Health; Visit Provider Psychiatry & Neurology Neurology | DX: G37.9 Demyelinating disease of central nervous system, unspecified (principal) | CPT/HCPCS: 96365; J2930 ==

== ENCOUNTER 2021-05-06 13:41 | Outpatient (REF) | payer OTHER, SELFPAY | END 2021-05-06 13:42 | disposition home or self-care (01) | LOC: HO.MDS 13:41 | PROVIDERS: PCP Registered Nurse Community Health; Visit Provider Psychiatry & Neurology Neurology | DX: G37.9 Demyelinating disease of central nervous system, unspecified (principal) | CPT/HCPCS: 96365; J2930 ==

== ENCOUNTER 2021-05-07 13:19 | Outpatient (REF) | payer OTHER, SELFPAY | END 2021-05-07 13:20 | disposition home or self-care (01) | LOC: HO.MDS 13:19 | PROVIDERS: PCP Registered Nurse Community Health; Visit Provider Psychiatry & Neurology Neurology | DX: G37.9 Demyelinating disease of central nervous system, unspecified (principal) | CPT/HCPCS: 96365; J2930 ==

== ENCOUNTER 2021-05-10 12:53 | Outpatient (REF) | payer OTHER, SELFPAY ==
--- NOTE | ~2021-05-10 | MR_ITS ---
EXAMINATION: MR LUMBAR SPINE WITHOUT CONTRAST CLINICAL INFORMATION: Chronic low back pain and left lower extremity radiculopathy. COMPARISON: MRI dated 07/13/2018. TECHNIQUE: MRI of the lumbar spine was obtained using routine sequences without contrast. FINDINGS: VERTEBRAL BODIES AND PARASPINAL STRUCTURES: The marrow signal is mildly heterogeneous with regions of fatty change. Slight retrosubluxation again evident at the L4-L5 level. No compression fractures are seen. The paraspinal soft tissues appear normal. Left-sided colonic diverticulosis noted. CONUS MEDULLARIS AND CAUDA EQUINA: Normal, terminating at the level of L1-L2. No lower cord signal abnormality is seen. The cauda equina nerve roots are normal. SPINAL LEVELS: L1-L2 and L2-L3: No disc pathology, central canal stenosis, or foraminal narrowing. Mild anterior endplate spurring at the L2-L3 level. L3-L4: Mild disc bulge and mild facet arthropathy without central canal stenosis. Very mild foraminal narrowing. Bulging disc abuts but does not distort the exiting L3 nerve roots. L4-L5: Retrosubluxation and diffuse disc bulge with a posterior annular fissure. Bulging disc impresses upon the L5 nerve roots in the subarticular zones with hypertrophic facet arthropathy, similar to prior imaging. No central canal stenosis. Bulging disc results in mild foraminal encroachment. L5-S1: Disc degeneration and left lateral recess disc extrusion severely compressing the left S1 nerve root, new compared to prior imaging. No central canal stenosis. Moderate left foraminal narrowing. MR/MR lumbar spine wo con IMPRESSION: New left lateral recess disc extrusion at L5-S1 severely compressing the left S1 nerve root. Moderate left foraminal narrowing. Retrosubluxation and mild disc bulge with a posterior annular fissure at the L4-L5 level, similar to prior imaging.
== END 2021-05-10 12:54 | disposition home or self-care (01) ==
LOC: HO.MRI 12:53
PROVIDERS: PCP Registered Nurse Community Health; Visit Provider Psychiatry & Neurology Neurology
DX: M54.16 Radiculopathy, lumbar region (principal)
CPT/HCPCS: 72148

== ENCOUNTER 2021-05-11 10:49 | Outpatient (RCR) | payer OTHER, SELFPAY ==
[2021-05-11 10:57] VITALS: BP 105/79
== END 2021-06-02 10:37 | disposition home or self-care (01) ==
LOC: HO.PT 10:49
PROVIDERS: PCP Registered Nurse Community Health; Visit Provider Registered Nurse Community Health
DX: M54.42 Lumbago with sciatica, left side (principal)
CPT/HCPCS: 97110; 97162

== ENCOUNTER 2021-05-12 10:29 | Outpatient (REF) | payer OTHER, SELFPAY ==
--- NOTE | ~2021-05-12 | US_ITS ---
EXAMINATION: ULTRASOUND-GUIDED FINE-NEEDLE ASPIRATION LEFT THYROID NODULE. CLINICAL INFORMATION: Heterogeneous enlarged 3.1 cm nodule left lower pole. COMPARISON: None TECHNIQUE: Following explaining ultrasound-guided left thyroid nodule biopsy procedure, benefits and risk consent was obtained. Patient was placed supine with head extended and preliminary ultrasound imaging was obtained through the left neck. An optimal site was selected along the left lower neck and marked on the skin. The marked area was and the report of left neck was cleaned and draped in usual sterile manner with 2% chlorhexidine solution. 1% lidocaine was injected at puncture site. Under sterile ultrasound guidance 25-gauge needle connected to syringe was inserted through the skin to the left nodule and a 4 pass fine-needle biopsy was performed. Biopsy was performed through the solid and/or cystic structures of the nodule. There is no hematoma. Patient tolerated procedure extremely well. Simple Band-Aid applied postprocedure. FINDINGS: On preliminary ultrasound imaging there is a heterogenous nodule left lower pole thyroid gland. Approximately 4 passes with fine-needle aspiration biopsy performed. Immediate results revealed adequate tissue. US/US guided fine needle asp IMPRESSION: Successful ultrasound-guided left thyroid lobe nodule biopsy performed without immediate complications.
[2021-05-12] MEDS: Lidocaine HCl 1 % MPF 5 ML VIAL 4 ML SUBCUT (11:43)
== END 2021-05-12 10:30 | disposition home or self-care (01) ==
LOC: HO.US 10:29
PROVIDERS: Absent Provider Registered Nurse Community Health; PCP Registered Nurse Community Health; Visit Provider Nurse Practitioner Family
DX: E04.1 Nontoxic single thyroid nodule (principal); R13.10 Dysphagia, unspecified
CPT/HCPCS: 10005; 88172; 88173; 88177; 88305

== ENCOUNTER 2021-10-18 09:40 | Outpatient (REF) | payer OTHER, SELFPAY ==
--- NOTE | ~2021-10-18 | MM_ITS ---
EXAMINATION: MM SCREENING DIGITAL BREAST TOMOSYNTHESIS, BILATERAL CLINICAL INFORMATION: Screening. Asymptomatic. The lifetime risk of breast cancer based on the Tyrer-Cuzick Model is 6%. COMPARISON: Mammography: 10/06/2020, 07/19/2019, 08/30/2017 TECHNIQUE: Digital breast tomosynthesis is performed in both the craniocaudal and mediolateral oblique views along with computer-aided detection (CAD). Synthesized 2D images are generated from the tomosynthesis. FINDINGS: There are scattered areas of fibroglandular density (ACR BI-RADS breast composition Category b). There are no significant masses, abnormal calcifications, or other abnormalities. Parenchymal pattern is similar to prior studies. There is no developing density or architectural abnormality. The axilla and skin contours are unremarkable. No significant changes. MM/MM tomosynthesis screening BI IMPRESSION: No mammographic evidence of malignancy. ASSESSMENT: BI-RADS 1: Negative RECOMMENDATION: Routine annual mammography screening. This patient's information was entered into a reminder system with a target due date for their next mammogram.
== END 2021-10-18 09:41 | disposition home or self-care (01) ==
LOC: HO.MAMMO 09:40
PROVIDERS: PCP Registered Nurse Community Health; Visit Provider Registered Nurse Community Health
DX: Z12.31 Encounter for screening mammogram for malignant neoplasm of breast (principal)
CPT/HCPCS: 77063; 77067

== ENCOUNTER → 2021-10-27 13:32 | Outpatient (BNVA) | payer OTHER, SELFPAY | PROVIDERS: PCP Registered Nurse Community Health; Referring Provider Registered Nurse Community Health; Visit Provider Internal Medicine | DX: R07.2 Precordial pain (principal); I10 Essential (primary) hypertension; E78.5 Hyperlipidemia, unspecified; Z86.73 Personal history of transient ischemic attack (TIA), and cerebral infarction without residual deficits | CPT/HCPCS: 93005; 99202 ==

== ENCOUNTER → 2021-11-02 08:30 | Outpatient (REF) | payer OTHER, SELFPAY ==
--- NOTE | 2021-11-02 08:33 | CA_ITS ---
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 The calculated ejection fraction is 65% by biplane method. - No obvious valvular pathology seen on this study. Findings Left Ventricle Normal left ventricular cavity size. There is normal left ventricular wall thickness. The left ventricular systolic function is normal. The calculated ejection fraction is 65% by biplane method. There is no evidence of regional wall motion abnormalities. Diastolic function is normal for age. Right Ventricle Normal right ventricular cavity size and systolic function. Atria Both atria are normal in size. Aortic Valve There is a normal trileaflet aortic valve. There is no aortic valve stenosis. There is no aortic valve regurgitation. Mitral Valve The mitral valve appears normal. There is no mitral valve regurgitation. There is no mitral valve stenosis. Pulmonic Valve The pulmonic valve is likely normal. Tricuspid Valve Normal tricuspid valve structure. There is no tricuspid valve regurgitation. The pulmonary artery systolic pressure is normal. Great Vessels The aortic annulus, sinuses of valsalva, asc aorta, and aortic arch are normal in size. Venous The inferior vena cava is normal in size and collapses greater than 50% with inspiration. Pericardium/Pleural There is no evidence of pericardial effusion. Prior Study Comparison No prior study available for comparison. Recommendations, Care & Conclusions No obvious valvular pathology seen on this study. Measurements 2D Linear Measurements IVSd: 1.06 0.6-0.9/0.6-1.0 cm LVIDd: 4.33 3.9-5.3/4.2-5.9 cm LVIDd Index: 2.43 2.4-3.2/2.2-3.1 cm/m2 LVIDs: 2.65 2.0-3.6 cm LVPWd: 0.99 0.7-1.1 cm LA Diam: 2.70 2.7-3.8/3.0-4.0 cm LAIDs Index: 1.52 1.5-2.3 cm/m2 LV Mass: 185.78 67-162/88-224 g LV Mass Index: 104.37 43-95/49-115 g/m2 LVOT Diam: 2.00 3.0+(-)1.3 cm 2D Systolic Function EF 4C: 60.20 >55% EF 2C: 68.00 >55% EF BiP: 64.70 >55% Mitral Valve MV Pk E: 0.75 MV PK A: 0.72 MV Decel Time: 208.00 E/A: 1.00 E'Lateral: 9.90 E'Medial: 7.51 E/E' Med: 9.90 E/E' Lat: 7.50 PHT: 61.00 MVA PHT: 3.61 Decel [place]: 3.59 Aortic Valve AoV Pk Troy: 1.36 AoV Mn [place]: 0.86 AoV VTI: 0.28 AoV Pk Grad: 7.00 Aov Mn Grad: 4.00 DAVID Cont.VTI: 2.94 LVOT LVOT Pk Troy: 1.22 LVOT Mn [place]: 0.77 LVOT VTI: 0.26 LVOT Pk Grad: 6.00 LVOT Mn Grad: 3.00 LVOT Diam: 2.00 LVOT Area: 3.14 Diastolic Function MV Pk E: 0.75 MV Pk A: 0.72 E/A: 1.00 E'Medial: 7.51 E/E' Med: 9.90 E' Laterial: 9.90 E/E' Lat: 7.50 Right Ventricle TAPSE (mm): 23.00 TVS' Troy: 9.14 Tricuspid Valve RA Press: 3.00 Great Vessels Aorta Sinus of Valsalva: 3.08 2.0-3.[address] [place]: 2.63 1.7-3.4 cm Ao Asc: 3.20 2.1-3.4 cm Ao Arch: 2.80 Updated in Other Vendor System with Status of Final Kris Alva MD electronically signed on 11/04/2021 6:00:22 PM with status of Final
== END ==
LOC: HO.CARD 08:30
PROVIDERS: PCP Registered Nurse Community Health; Visit Provider Internal Medicine
DX: R07.2 Precordial pain (principal)
CPT/HCPCS: 93306

== ENCOUNTER 2022-02-08 10:29 | Outpatient (REF) | payer OTHER, SELFPAY ==
--- NOTE | ~2022-02-08 | US_ITS ---
EXAMINATION: US RETROPERITONEAL LIMITED (RENAL ONLY) CLINICAL INFORMATION: Calculus of kidney. COMPARISON: Bilateral renal ultrasound dated 02/03/2021 and 03/02/2020. CT abdomen and pelvis without and with contrast dated 07/06/2020. KUB dated 08/28/2019 and 10/10/2018. TECHNIQUE: Real-time imaging of the kidneys. FINDINGS: RIGHT KIDNEY: 8.7 x 5.1 x 4.8 cm (SAG x AP x TRV). The kidney is normal in size, contour, and echogenicity. Renal cortical thickness is normal. No focal parenchymal lesions or hydronephrosis. A lower pole 4 x 2 x 3 mm echogenic focus seen consistent with a nonobstructing stone. LEFT KIDNEY: 9.7 x 4.1 x 3.8 cm (SAG x AP x TRV). The kidney is normal in size, contour, and echogenicity. Renal cortical thickness is normal. No focal parenchymal lesions or hydronephrosis. There is a lower pole echogenic focus measuring 4 x 1 x 3 mm consistent with a nonobstructing stone. US/US renal BI IMPRESSION: Nonobstructing 4 mm stones at each lower pole. At the time of the prior ultrasound these measured 3 mm.
== END 2022-02-08 10:30 | disposition home or self-care (01) ==
LOC: HO.US 10:29
PROVIDERS: PCP Registered Nurse Community Health; Visit Provider Urology
DX: N20.0 Calculus of kidney (principal)
CPT/HCPCS: 76775

== ENCOUNTER → 2022-04-19 13:16 | Outpatient (BNVA) | payer OTHER, SELFPAY | PROVIDERS: PCP Registered Nurse; Visit Provider Urology | DX: N30.10 Interstitial cystitis (chronic) without hematuria (principal); N20.0 Calculus of kidney; Z79.899 Other long term (current) drug therapy | CPT/HCPCS: Q3014 ==

== ENCOUNTER 2022-08-04 08:20 | Outpatient (REF) | payer OTHER, SELFPAY ==
[2022-08-04 10:41] LABS: Blood Urea Nitrogen 11 mg/dL (9-16); Estimated Glomerular Filt Rate 54
== END 2022-08-04 08:21 | disposition home or self-care (01) ==
LOC: HO.LAB 08:20
PROVIDERS: PCP Registered Nurse; Visit Provider Nurse Practitioner Family
DX: N30.11 Interstitial cystitis (chronic) with hematuria (principal); N02.9 Recurrent and persistent hematuria with unspecified morphologic changes; N20.0 Calculus of kidney; R39.15 Urgency of urination; Z79.899 Other long term (current) drug therapy
CPT/HCPCS: 36415; 82565; 84520; 87086; 87088; 87186; 99212

== ENCOUNTER 2022-08-11 14:19 | Outpatient (REF) | payer OTHER, SELFPAY ==
--- NOTE | ~2022-08-11 | CT_ITS ---
EXAMINATION: CT ABDOMEN AND PELVIS WITHOUT AND WITH CONTRAST CLINICAL INFORMATION: Gross hematuria. COMPARISON: 07/06/2020. Ultrasound examination of 02/08/2022. TECHNIQUE: Noncontrast CT of the abdomen and pelvis is performed followed by split bolus contrast-enhanced images using 85 mL Omnipaque 350 contrast.? Postcontrast imaging is performed during the combined nephrogram and excretion phase. Sagittal and coronal reformatted images were obtained on the technologist's workstation for both the precontrast and postcontrast phases. This CT examination was performed using dose optimization techniques as appropriate, variously including the following: *Automated exposure control *Adjustment of mA and/or kV according to patient size (this includes techniques or standardized protocols for targeted exams where dose is matched to indication/reason for exam; i.e. extremities or head) *Use of iterative reconstruction technique DLP: 552 mGy-cm FINDINGS: LUNG BASES: No confluent parenchymal disease is seen. Region of atelectasis or scarring is seen within the right middle lobe. No pleural or pericardial effusion. Heart normal size. LIVER, GALLBLADDER, AND BILIARY TREE: The liver is normal in size, shape, and attenuation. No focal hepatic lesion or biliary ductal dilatation is present. Cholelithiasis is present without evidence of acute cholecystitis. PANCREAS: Unremarkable. No abnormal mass or peripancreatic inflammatory change. SPLEEN: Unremarkable. ADRENAL GLANDS: Unremarkable. KIDNEYS AND URETERS: RIGHT KIDNEY: No hydronephrosis identified. No obstructing calculi are seen. There is question of a 1 mm lower pole calculus on coronal view; however, on thin section axial views I do not see this. No suspicious mass is identified. The right ureter is not dilated. There are numerous phleboliths seen about the pelvis and it is difficult to follow the distal ureter; however, there are no secondary signs of ureteral calculus. The distal third of the right ureter is not opacified. 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 There is a 2 mm nonobstructing calculus seen within the interpolar region. There is a 2 mm nonobstructing calculus within the upper pole. No hydronephrosis or suspicious renal mass is identified. The entire length of the left ureter opacifies. No left renal calculi are identified. BLADDER: Unremarkable. GASTROINTESTINAL TRACT: No dilated loops of large or small bowel are evident. No free air or free fluid is seen. There is mild diverticulosis of the sigmoid colon. The appendix appears unremarkable. No pericolonic inflammatory change. ABDOMINAL WALL: No significant hernia is appreciated. LYMPH NODES: No lymphadenopathy appreciated. VASCULAR: Unremarkable. PELVIC VISCERA: Unremarkable. OSSEUS STRUCTURES: No suspicious destructive bony lesions are identified. There is degenerative disc disease seen at the L5-S1 level. CT/CT urogram IMPRESSION: 1. No evidence of obstructive uropathy. 2. Two small nonocclusive left renal calculi. 3. Previously noted 4 mm right renal calculus is not identified. The distal third of the right ureter does not opacify following IV contrast administration. 4. Cholelithiasis without evidence of acute cholecystitis.
[2022-08-11] MEDS: iohexoL 350 MG/ML 100 ML INFUS..BTL IV (15:21)
== END 2022-08-11 14:20 | disposition home or self-care (01) ==
LOC: HO.CT 14:19
PROVIDERS: PCP Registered Nurse; Visit Provider Nurse Practitioner Family
DX: R31.0 Gross hematuria (principal); N20.0 Calculus of kidney; N30.10 Interstitial cystitis (chronic) without hematuria
CPT/HCPCS: 74178; Q9967

== ENCOUNTER → 2022-08-16 11:31 | Outpatient (BNVA) | payer OTHER, SELFPAY | PROVIDERS: PCP Registered Nurse; Visit Provider Nurse Practitioner Family | DX: N30.10 Interstitial cystitis (chronic) without hematuria (principal); N20.0 Calculus of kidney | CPT/HCPCS: 99212 ==

== ENCOUNTER 2022-12-09 09:58 | Outpatient (AMB) | payer OTHER, SELFPAY ==
--- NOTE | 2022-12-09 10:07 | A.OFFVIS_ITS ---
Intake Vital Signs 12/09/22 10:15 Weight 132 lb 1 oz BP 124/84 Blood Pressure Location Rt brachial Position Sitting Respiration 16 Pulse 73 Pulse Source Pulse Oximeter Pulse Oximetry (%) 96 Oxygen Delivery Method Room Air Intake Visit Reasons: LUMBAR DISC HERNIATION WITH RADICULOPATHY Allergies trimethoprim [From Bactrim] Allergy (Mild, Verified 12/09/22 10:16) HIVES Sulfa (Sulfonamide Antibiotics) Allergy (Unknown, Verified 12/09/22 10:16) Hives HPI HPI Comments History of Present Illness Details Angelia is a very pleasant 52-year-old female who presents to the office today for evaluation management of her chronic lower back pain. Patient pr eviously seen in this office for right-sided neck pain. Patient reports that she has minimal pain today. She does state that at times she will have significant pain that radiates down both legs. There are times where the pain will radiate down the left leg and other times will radiate down the right leg. Patient complains of intermittent numbness and tingling of the legs as well as left lower extremity weakness. Patient denies red flag symptoms including loss of bowel, bladder or saddle anesthesia. She had an MRI in 2020 that showed left lateral recess disc extrusion at L5-S1 severely compressing the left S1 nerve root. Discuss the results of this MRI with the patient today. She states that after the MRI she was evaluated by a neurosurgeon and was told that she was not a candidate for surgery at that time. She has not had repeat MRI or neuro surgical evaluation since 2020. The patient currently taking Flexeril and gabapentin for her pain which she states does not adequately manage her pain. There are some days that the pain is excruciating. She has tried physical therapy and did not find it to be of any benefit. She continues with home exercise program. She has tried [id number] medications. Cold exacerbates the pain. Of note patient was also recently diagnosed with MS and is currently undergoing evaluation and management by her doctor at [facility]. Previous visit: [facility] Medical History Arthritis Cystitis Heart burn History of stroke IBS (irritable colon syndrome) Interstitial cystitis Kidney stone Patellofemoral pain syndrome of left knee Proctosigmoiditis Recurrent major depression in complete remission Surgical History H/O colonoscopy Family History Mother No problems noted. Father No problems noted. Maternal Grandfather Heart disease Maternal Grandmother Heart disease Paternal Grandfather Heart disease Paternal Grandmother Heart disease Social History Household Members: None Alcohol intake: never Patient Tobacco Use Status: Never used Tobacco Current occupational status: disabled Current occupation: right handed Review of Systems Const All systems reviewed & are unremarkable except as noted in HPI and below Physical Exam Vital Signs: Last Vital Signs Pulse 73 12/09/22 10:15 Resp 16 12/09/22 10:15 BP 124/84 12/09/22 10:15 Pulse Ox 96 12/09/22 10:15 Oxygen Delivery Method Room Air 12/09/22 10:15 General: awake, alert, oriented. Answers questions appropriately. Fully engaged in examination. Skin: warm, dry, intact without visible rashes or lesions. HEENT: Normocephalic. Conjuntivae clear without exudate. Sclera non-icteric. Hearing intact. Cardiac: External chest normal in appearance. Respiratory: No signs of trauma. No signs of respiratory distress. No cough, audible wheezing or stridor. Abdomen: without gross distension. MS: No obvious swelling or deformities. Able to stand on bilateral tiptoes and bilateral heels.? Able to transition from sit to stand unassisted. Ambulates with bilaterally normal heel strike and toe off SLR with and without dorsiflexion positive bilaterally Neurological: Oriented to person, place, time and situation. Thought process intact. No gait abnormalities appreciated. Psychiatric: Appropriate mood and affect. Good judgment and insight. Results Reviewed Results Reviewed: EXAMINATION: MR LUMBAR SPINE WITHOUT CONTRAST FINDINGS: VERTEBRAL BODIES AND PARASPINAL STRUCTURES: The marrow signal is mildly heterogeneous with regions of fatty change. Slight retrosubluxation again evident at the L4-L5 level. No compression fractures are seen. The paraspinal soft tissues appear normal. Left-sided colonic diverticulosis noted. CONUS MEDULLARIS AND CAUDA EQUINA: Normal, terminating at the level of L1-L2. No lower cord signal abnormality is seen. The cauda equina nerve roots are normal. SPINAL LEVELS: L1-L2 and L2-L3: No disc pathology, central canal stenosis, or foraminal narrowing. Mild anterior endplate spurring at the L2-L3 level. L3-L4: Mild disc bulge and mild facet arthropathy without central canal stenosis. Very mild foraminal narrowing. Bulging disc abuts but does not distort the exiting L3 nerve roots. L4-L5: Retrosubluxation and diffuse disc bulge with a posterior annular fissure. Bulging disc impresses upon the L5 nerve roots in the subarticular zones with hypertrophic facet arthropathy, similar to prior imaging. No central canal stenosis. Bulging disc results in mild foraminal encroachment. L5-S1: Disc degeneration and left lateral recess disc extrusion severely compressing the left S1 nerve root, new compared to prior imaging. No central canal stenosis. Moderate left foraminal narrowing. IMPRESSION: New left lateral recess disc extrusion at L5-S1 severely compressing the left S1 nerve root. Moderate left foraminal narrowing. ? Retrosubluxation and mild disc bulge with a posterior annular fissure at the L4-L5 level, similar to prior imaging. Assessment & Plan Assessment & Plan (1) Lumbar radiculopathy: Code(s): M54.16 - Radiculopathy, lumbar region (2) Lumbar spondylosis: Code(s): M47.816 - Spondylosis without myelopathy or radiculopathy, lumbar region Plan Angelia is a very pleasant 52 year old female who presents to the office today for evaluation and management of her chronic lower back pain. MRI 2020: New left lateral recess disc extrusion at L5-S1 severely compressing the left S1 nerve root. Will update imaging, MRI lumbar spine non contrast ordered today. Patient will follow up in the office after completion to review results. Discussed options for treatment including diagnostic interventional testing, epidural steroid injections, peripheral nerve stimulation with Sprint, RFA and more permanent neuromodulation. Plan for fluoroscopy guided therapeutic IRVIN with local anesthetic after review of MRI providing MRI does not warrant neurosurgical evaluation. All questions and concerns have been answered and patient agrees with the plan. Orders: Orders MR lumbar spine wo con Today M47.816 - Spondylosis without myelopathy or radiculopathy, lumbar region, M54.16 - Radiculopathy, lumbar region Coding Level of Care Code Est Pt Level 3 (99504) Diagnoses Lumbar radiculopathy M54.16 Lumbar spondylosis M47.816
[2022-12-09 10:15] VITALS: BP 124/84; PULSE 73; RESP 16; O2SAT 96
== END 2022-12-09 10:28 | disposition home or self-care (01) ==
PROVIDERS: PCP Registered Nurse; Visit Provider Registered Nurse Emergency
DX: M54.16 Radiculopathy, lumbar region (principal); M47.816 Spondylosis without myelopathy or radiculopathy, lumbar region
CPT/HCPCS: 99213

== ENCOUNTER → 2022-12-09 09:58 | Outpatient (BNVA) | payer OTHER, SELFPAY | PROVIDERS: PCP Registered Nurse; Visit Provider Registered Nurse Emergency | DX: M54.16 Radiculopathy, lumbar region (principal); M47.816 Spondylosis without myelopathy or radiculopathy, lumbar region | CPT/HCPCS: 99212 ==

== ENCOUNTER 2023-02-10 08:10 | Outpatient (REF) | payer OTHER, SELFPAY ==
--- NOTE | ~2023-02-10 | US_ITS ---
EXAMINATION: US RETROPERITONEAL LIMITED (RENAL ONLY) CLINICAL INFORMATION: Calculus of kidney. COMPARISON: CT urogram 08/11/2022. Renal ultrasound 02/08/2022 and 02/03/2021. X-ray abdomen KUB 08/28/2019. TECHNIQUE: Real-time imaging of the kidneys. Limited visualization due to bowel gas and body habitus. FINDINGS: RIGHT KIDNEY: 9.6 x 4.4 x 5.4 cm (SAG x AP x TRV). Mild fullness right renal pelvis. Right renal upper pole calculi, largest 0.4 cm. Renal cortical thickness is normal. Limited visualization. LEFT KIDNEY: 9.4 x 3.6 x 3.3 cm (SAG x AP x TRV). No hydronephrosis. Limited visualization. There is a 0.2 x 0.1 x 0.2 cm echogenic cortical calcification midpole. Punctate 0.1 cm echogenic focus lower pole left kidney may represent a calculus versus vascular calcification. US/US renal BI IMPRESSION: 1. Right renal calculi. Mild fullness right renal collecting system. 2. Tiny nonobstructive left renal calculi. No left hydronephrosis.
== END 2023-02-10 08:11 | disposition home or self-care (01) ==
LOC: HO.US 08:10
PROVIDERS: PCP Registered Nurse; Visit Provider Nurse Practitioner Family
DX: N20.0 Calculus of kidney (principal)
CPT/HCPCS: 76775

== ENCOUNTER 2023-02-28 11:29 | Outpatient (AMB) | payer OTHER, SELFPAY ==
--- NOTE | 2023-02-28 11:49 | MHC.OFFVIS ---
Intake Intake Visit Reasons: 6m/US(set) Intake Note: Patient is present for follow up ultrasound/kidney stone (imaging 02/10/23) Urology Medications: vitamin B6 Blood Thinner: none Patient unable to provide urine specimen Paid Intern Required: No Accompanied by: Self / Same As Patient Allergies trimethoprim [From Bactrim] Allergy (Mild, Verified 02/28/23 21:27) HIVES Sulfa (Sulfonamide Antibiotics) Allergy (Unknown, Verified 02/28/23 21:27) Hives Medication List - Last Reconciled 02/28/23 by LILLY Phillips cyclobenzaprine 10 mg PO TID gabapentin 400 mg PO TID olmesartan 0 mg PO pyridoxine (vitamin B6) 100 mg PO DAILY 90 days HPI HPI Comments History of Present Illness Details Angelia is a pleasant 52-year-old female patient of Dr. Bauer. She has a past medical history of depression, interstitial cystitis, IBS, stroke, arthritis, renal calculi, and heartburn. Patient presents to the office today for follow-up of her interstitial cystitis and nephrolithiasis. Recent renal imaging results reviewed with the patient today. Mild fullness right renal pelvis. Right renal upper pole calculi largest 0.4 cm. Left kidney with limited visualization however no hydronephrosis noted. There is a 0.2 x 0.1 x 0.2 cm echogenic cortical calcification midpole. Punctate 0.1 cm echogenic focus lower pole left kidney may represent a calculus versus vascular calcification in the left kidney. When asked patient denies any bothersome urinary issues at this time. She denies urinary urgency, urinary frequency, incontinence, nocturia, hematuria, dysuria, foul smelling urine, changes to urinary stream, flank pain, fever, and or chills. Patient reports complaince with vitamin B6 and discusses at time she has been having difficulty maintaining plenty of water daily however she knows the importance in doing so with relation to interstitial cystitis as well as nephrolithiasis. She otherwise denies any other issues or concerns at this time. [facility] Medical History History of stroke Recurrent major depression in complete remission Interstitial cystitis IBS (irritable colon syndrome) Proctosigmoiditis Patellofemoral pain syndrome of left knee Arthritis Heart burn Cystitis Kidney stone Surgical History H/O colonoscopy Family History Mother No problems noted. Father No problems noted. Maternal Grandfather Heart disease Maternal Grandmother Heart disease Paternal Grandfather Heart disease Paternal Grandmother Heart disease Social History Household Members: None Alcohol intake: never Patient Tobacco Use Status: Never used Tobacco Current occupational status: disabled Current occupation: right handed Review of Systems Const Reports as per HPI Eyes Reports no additional complaints ENT Reports no additional complaints Card Reports no additional complaints Resp Reports no additional complaints GI Reports as per HPI Reports as per HPI Musc Reports as per HPI Neuro Reports as per HPI Psych Reports as per HPI Endo Reports no additional complaints Eliseo/Lymph Reports no additional complaints Aller/Immun Reports no additional complaints Physical Exam Const General: cooperative, healthy appearing, comfortable, no acute distress, well developed, alert and awake Orientation/consciousness: patient oriented x3 Limitations: no limitations HEENT Head: Yes normal to inspection, Yes normocephalic and Yes atraumatic Ears: hearing grossly normal bilaterally Eyes General: appearance normal, both eyes and all related structures Neck Neck: Yes normal visual inspection and Yes trachea midline Chest Chest palpation & inspection: normal inspection of the chest Resp Effort & Inspection: normal respiratory effort and able to speak in complete sentences Cardio Rate: regular rate GI Inspection: Yes normal to inspection General: Yes no CVA tenderness Back/Spine/Pelvis Back: no CVA tenderness Skin General skin exam: no rashes or lesions noted Neuro General: patient oriented x3 Extrem General: Yes normal to inspection Psych Appearance: grossly normal and well kempt Mental Status: mental status grossly normal Speech and movement: Normal speech and movement present and Clear speech present Affect: normal affect Attitude: cooperative Thought process: Normal thought process present Thought content: Normal thought content present Insight: Fair insight present (Psych) Judgement: Fair judgement present (Psych) Results Reviewed Results Reviewed: Date of Service: 02/10/23 EXAMINATION: US RETROPERITONEAL LIMITED (RENAL ONLY) FINDINGS: RIGHT KIDNEY: 9.6 x 4.4 x 5.4 cm (SAG x AP x TRV). Mild fullness right renal pelvis. Right renal upper pole calculi, largest 0.4 cm. Renal cortical thickness is normal. Limited visualization. LEFT KIDNEY: 9.4 x 3.6 x 3.3 cm (SAG x AP x TRV). No hydronephrosis. Limited visualization. There is a 0.2 x 0.1 x 0.2 cm echogenic cortical calcification midpole. Punctate 0.1 cm echogenic focus lower pole left kidney may represent a calculus versus vascular calcification. IMPRESSION: 1. Right renal calculi. Mild fullness right renal collecting system. 2. Tiny nonobstructive left renal calculi. No left hydronephrosis. Assessment & Plan Assessment & Plan (1) Kidney stone: Code(s): N20.0 - Calculus of kidney (2) Interstitial cystitis: Code(s): N30.10 - Interstitial cystitis (chronic) without hematuria Plan Unable to obtain urine for urinalysis as patient unable to void However, PVR 0 mL. Discussed recent renal ultrasound results with the patient today; as noted above. She denies any urinary issues or concerns at this time. Continue vitamin B6 as discussed and prescribed. Continue adding 1 oz of lemon juice to water daily. Discussed, educated, instructed on the importance of drinking plenty of water daily. Will obtain renal ultrasound in 6 months with BUN and Creatinine Follow-up in 6 months with labs and imaging to be completed prior; or sooner with any issues, concerns, and or questions. Orders: Orders US renal BI 6 Months N20.0 - Calculus of kidney Blood Urea Nitrogen 6 Months R39.15 - Urgency of urination Creatinine 6 Months R39.15 - Urgency of urination Coding Level of Care Code Est Pt Level 3 (20429) Diagnoses Kidney stone N20.0 Interstitial cystitis N30.10
== END 2023-02-28 12:20 | disposition home or self-care (01) ==
PROVIDERS: PCP Registered Nurse; Visit Provider Nurse Practitioner Family
DX: N20.0 Calculus of kidney (principal); N30.10 Interstitial cystitis (chronic) without hematuria
CPT/HCPCS: 99213

== ENCOUNTER → 2023-02-28 11:29 | Outpatient (BNVA) | payer OTHER, SELFPAY | PROVIDERS: Visit Provider Nurse Practitioner Family | DX: N20.0 Calculus of kidney (principal); N30.10 Interstitial cystitis (chronic) without hematuria | CPT/HCPCS: 99212 ==

== ENCOUNTER 2023-05-25 09:55 | Outpatient (REF) | payer OTHER, SELFPAY ==
[2023-05-25 11:14] LABS: MANUAL DIFF FLAG NO
[2023-05-25 11:36] LABS: Basophils Absolute Auto 0.1 X10*3/uL (0.0-0.2); Basophils Percent Auto 1.4 % (0-2); Eosinophils Absolute Auto 0.2 X10*3/uL (0.0-0.4); Eosinophils Percent Auto 3.7 % (0-4); Hematocrit 38.8 % (37.0-47.0); Hemoglobin 12.6 g/dl (12.0-16.0); Imm Gran Abs Auto 0.01 X10*3/uL (0.00-0.03); Imm Gran Pct Auto 0.2 % (0.0-0.4); Lymphocytes Absolute Auto 1.5 X10*3/uL (1.2-4.9); Lymphocytes Percent Auto 35.2 % (20-40); Mean Corpuscular HGB Conc 32.5 g/dl (31.0-35.0); Mean Corpuscular Hemoglobin 28.1 pg (27.0-33.0); Mean Corpuscular Volume 86.4 fL (80.0-98.0); Mean Platelet Volume 10.9 fL (9.4-12.3); Monocytes Absolute Auto 0.4 X10*3/uL (0.1-1.2); Monocytes Percent Auto 8.2 % (2-11); Neutrophils Absolute Auto 2.3 x10*3/uL (2.0-8.3); Neutrophils Percent Auto 51.3 % (45-73); Platelet Count 232 X10*3/uL (160-400); Red Blood Count 4.49 X10*6/uL (4.20-5.50); Red Cell Distribution Width 13.2 % (11.0-16.0); White Blood Count 4.4 X10*3/uL (4.8-10.8)
[2023-05-25 14:18] LABS: Alanine Aminotransferase 14 U/L (0-31); Albumin Level 3.9 g/dL (3.5-5.0); Alkaline Phosphatase 81 U/L (39-117); Anion Gap 10 (12-20); Aspartate Amino Transferase 22 U/L (5-31); Blood Urea Nitrogen 17 mg/dL (9-16); Calcium 9.5 mg/dL (8.4-10.2); Carbon Dioxide 29 mmol/L (22-29); Chloride 105 mmol/L (96-108); Cholesterol 265 mg/dL (<200); Estimated Glomerular Filt Rate 59; Glucose Random 74 mg/dL (60-115); HDL Cholesterol 61 mg/dL (>40); LDL Cholesterol Calculated 182 mg/dL (<100); Potassium 4.7 mmol/L (3.3-5.1); Sodium 139 mmol/L (135-145); Total Protein 6.9 g/dL (6.5-8.0); Triglycerides 114 mg/dL (<150)
[2023-05-25 14:21] LABS: TSH reflex Free T4 0.94 uIU/mL (0.32-4.0)
== END 2023-05-25 09:56 | disposition home or self-care (01) ==
LOC: HO.HHCL 09:55
PROVIDERS: Visit Provider Registered Nurse
DX: I10 Essential (primary) hypertension (principal); R55 Syncope and collapse
CPT/HCPCS: 36415; 80053; 80061; 84443; 85025

== ENCOUNTER 2023-06-20 10:09 | Outpatient (REF) | payer OTHER, SELFPAY | END 2023-06-20 10:10 | disposition home or self-care (01) | LOC: HO.MAMMO 10:09 | PROVIDERS: PCP Registered Nurse; Visit Provider Registered Nurse | DX: Z12.31 Encounter for screening mammogram for malignant neoplasm of breast (principal) | CPT/HCPCS: 77063; 77067 ==

== ENCOUNTER → 2023-06-20 10:30 | Outpatient (BNV) | payer OTHER, SELFPAY | PROVIDERS: PCP Registered Nurse; Visit Provider Radiology Diagnostic Radiology | DX: Z12.31 Encounter for screening mammogram for malignant neoplasm of breast (principal) | CPT/HCPCS: 77063; 77067 ==

== ENCOUNTER 2023-08-31 12:47 | Outpatient (REF) | payer OTHER, SELFPAY ==
--- NOTE | ~2023-08-31 | US_ITS ---
EXAMINATION: US RETROPERITONEAL LIMITED (RENAL ONLY) CLINICAL INFORMATION: Calculus of kidney. COMPARISON: Renal ultrasound 02/10/2023 and 02/08/2022. CT urogram 08/11/2022. X-ray KUB 08/28/2019 and 10/10/2018. TECHNIQUE: Real-time imaging of the kidneys. Limited visualization due to bowel gas. FINDINGS: RIGHT KIDNEY: 9.4 x 3.7 x 4.6 cm (SAG x AP x TRV). A 4 mm mid pole calculus. Several additional tiny echogenic mid and lower pole right renal foci are characteristic of nonobstructing calculi. No hydronephrosis. Renal cortical thickness is normal. Limited visualization. LEFT KIDNEY: 9.9 x 3.9 x 3.6 cm (SAG x AP x TRV). No hydronephrosis. Renal cortical thickness is normal. Limited visualization. A 4 mm interpolar cortical calcification. Lower pole 5 mm echogenic focus characteristic of a calcification. Possible duplicated renal collecting system difficult to confirm. It was not noted on prior imaging. Renal cortical thickness is normal. US/US renal BI IMPRESSION: Bilateral nonobstructing renal calculi. No hydronephrosis.
== END 2023-08-31 12:48 | disposition home or self-care (01) ==
LOC: HO.US 12:47
PROVIDERS: PCP Registered Nurse; Visit Provider Nurse Practitioner Family
DX: N20.0 Calculus of kidney (principal)
CPT/HCPCS: 76775

== ENCOUNTER 2024-02-29 13:02 | Outpatient (AMB) | payer OTHER, SELFPAY ==
--- NOTE | 2024-02-29 13:00 | A.OFFVIS_ITS ---
Intake Visit Reasons: 1y/US(set) Intake Note: Patient presents today for follow up on: kidney stone and ultrasound results Imaging Completed: 08/31/23 Urology Medications: vitamin B6 Blood Thinner: none Leather Crafter Required: No Accompanied by: Self / Same As Patient Allergies trimethoprim [From Bactrim] Allergy (Mild, Verified 02/29/24 13:26) HIVES Sulfa (Sulfonamide Antibiotics) Allergy (Unknown, Verified 02/29/24 13:26) Hives Medication List - Last Reconciled 02/29/24 by LILLY Phillips cholecalciferol (vitamin D3) (Vitamin D3) 50 mcg PO DAILY cyclobenzaprine 10 mg PO TID dimethyl fumarate mg PO gabapentin 400 mg PO TID pyridoxine (vitamin B6) 100 mg PO DAILY 90 days HPI Comments Details: Angelia is a pleasant 53-year-old female patient of Dr. Bauer. She has a past medical history of depression, interstitial cystitis, IBS, stroke, arthritis, renal calculi, and heartburn. She presents to the office today for follow-up of her interstitial cystitis and nephrolithiasis. Recent renal imaging results reviewed with the patient today. 4 mm mid pole right renal calculi. Several additional tiny echogenic mid and lower pole right renal foci. Left kidney with 4 mm and 5 mm renal calculi. No hydronephrosis noted bilaterally. In discussion with the patient today she reports to be doing and feeling well she reports no bothersome urinary issues or concerns since her last office visit here approximately 1 year ago. She reports compliance with vitamin B6 daily in attempts to keep up with her water intake. She denies urinary urgency, urinary frequency, incontinence, nocturia, hematuria, dysuria, foul smelling urine, changes to urinary stream, flank pain, fever, and or chills. In office urinalysis urinalysis results reviewed with the patient today. She otherwise denies any other issues or concerns at this time. [facility] Medical History (Reviewed 02/29/24 @ 13:36 by Amara Ho [facility]) History of stroke Recurrent major depression in complete remission Interstitial cystitis IBS (irritable colon syndrome) Proctosigmoiditis Patellofemoral pain syndrome of left knee Arthritis Heart burn Cystitis Kidney stone Surgical History H/O colonoscopy Family History Mother No problems noted. Father No problems noted. Maternal Grandfather Heart disease Maternal Grandmother Heart disease Paternal Grandfather Heart disease Paternal Grandmother Heart disease Social History Household Members: None Alcohol intake: never Patient Tobacco Use Status: Never used Tobacco Current occupational status: disabled Current occupation: right handed Review of Systems Const Reports as per HPI Eyes Reports no additional complaints ENT Reports no additional complaints Card Reports no additional complaints Resp Reports no additional complaints GI Reports as per HPI Reports as per HPI Musc Reports as per HPI Neuro Reports as per HPI Psych Reports as per HPI Endo Reports no additional complaints Eliseo/Lymph Reports no additional complaints Aller/Immun Reports no additional complaints Physical Exam Const General: cooperative, healthy appearing, comfortable, no acute distress, well developed, alert and awake Orientation/consciousness: patient oriented x3 Limitations: no limitations HEENT Head: Yes normal to inspection, Yes normocephalic and Yes atraumatic Ears: hearing grossly normal bilaterally Eyes General: appearance normal, both eyes and all related structures Neck Neck: Yes normal visual inspection and Yes trachea midline Chest Chest palpation & inspection: normal inspection of the chest Resp Effort & Inspection: normal respiratory effort and able to speak in complete sentences Cardio Rate: regular rate GI Inspection: Yes normal to inspection General: Yes no CVA tenderness Back/Spine/Pelvis Back: no CVA tenderness Skin General skin exam: no rashes or lesions noted Neuro General: patient oriented x3 Extrem General: Yes normal to inspection Psych Appearance: grossly normal and well kempt Mental Status: mental status grossly normal Speech and movement: Normal speech and movement present and Clear speech present Affect: normal affect Attitude: cooperative Thought process: Normal thought process present Thought content: Normal thought content present Insight: Fair insight present (Psych) Judgement: Fair judgement present (Psych) Results Reviewed Results Reviewed: Date of Service: 08/31/23 EXAMINATION: US RETROPERITONEAL LIMITED (RENAL ONLY) FINDINGS: RIGHT KIDNEY: 9.4 x 3.7 x 4.6 cm (SAG x AP x TRV). A 4 mm mid pole calculus. Several additional tiny echogenic mid and lower pole right renal foci are characteristic of nonobstructing calculi. No hydronephrosis. Renal cortical thickness is normal. Limited visualization. LEFT KIDNEY: 9.9 x 3.9 x 3.6 cm (SAG x AP x TRV). No hydronephrosis. Renal cortical thickness is normal. Limited visualization. A 4 mm interpolar cortical calcification. Lower pole 5 mm echogenic focus characteristic of a calcification. Possible duplicated renal collecting system difficult to confirm. It was not noted on prior imaging. Renal cortical thickness is normal. IMPRESSION: Bilateral nonobstructing renal calculi. No hydronephrosis. Assessment & Plan Assessment & Plan (1) Kidney stone: Code(s): N20.0 - Calculus of kidney Category: Medical (2) Interstitial cystitis: Code(s): N30.10 - Interstitial cystitis (chronic) without hematuria Category: Medical Plan In office urinalysis results reviewed with the patient today; as noted above. Recent renal imaging results reviewed with the patient today; as noted above. She currently denies any bothersome urinary issues or concerns. She reports be happy with current voiding parameters. She reports no bothersome urinary issues or concerns since her last office visit here. Continue vitamin B6. Continue adding 1 oz of lemon juice to water daily. Continue drinking plenty of water daily. Will obtain renal ultrasound in 1 year. Follow-up in 1 year with imaging to be completed prior; or sooner with any issues, concerns, and or questions. Orders: Orders US renal BI 1 Year N20.0 - Calculus of kidney AMB Urinalysis Automated Today Z13.9 - Encounter for screening, unspecified Medications: Refilled pyridoxine (vitamin B6) 100 mg PO DAILY 90 days 90 tabs 4RF N20.0 - Calculus of kidney Patient Instructions: The patient had an opportunity to ask questions regarding the treatment plan. All questions were answered. Physical exam, labs, and imaging were discussed and reviewed in detail. As well as risks, benefits, and discussion of treatment choices. No major barriers to understanding were identified. The patient expressed understanding and agreement with the above treatment plan. The patient was made aware they should contact our office by phone for worsening of their current condition, the appearance of new symptoms, or with any questions or concerns. Compliance is encouraged with any medications and follow up testing that is ordered. It is a privilege to be allowed the opportunity to participate in? your urological care.? Again, if you have any questions or concerns If you have any questions or concerns please do not hesitate to contact me. The office is [phone]. This note is constructed using voice recognition software. While every effort has been made to ensure accuracy horse exerciser errors may have been included. Yours sincerely, LILLY Phillips Coding Level of Care Code Est Pt Level 3 (41359) Diagnoses Kidney stone N20.0 Interstitial cystitis N30.10
== END 2024-02-29 13:26 | disposition home or self-care (01) ==
PROVIDERS: PCP Registered Nurse; Visit Provider Nurse Practitioner Family
DX: N20.0 Calculus of kidney (principal); N30.10 Interstitial cystitis (chronic) without hematuria
CPT/HCPCS: 99213

== ENCOUNTER → 2024-02-29 13:02 | Outpatient (BNVA) | payer OTHER, SELFPAY | PROVIDERS: PCP Registered Nurse; Visit Provider Nurse Practitioner Family | DX: N20.0 Calculus of kidney (principal); N30.10 Interstitial cystitis (chronic) without hematuria | CPT/HCPCS: 99212 ==

== ENCOUNTER 2024-06-25 10:12 | Outpatient (REF) | payer OTHER, SELFPAY ==
--- OUTSIDE RECORDS SUMMARY | 2024-06-25 11:05 | XMS_ITS | Encounter Summary ---
Author Organization [employer] [facility] Address [address] [place] [address] 7t [place] [address] Care Team Providers Care Net Development Manager Name Role Phone LizetteYohana [facility] Primary Care Provider [phone] Reason for Visit * Reason Onset Date Comments Med Refill 02/13/2023 Encounter Details Date Type Department Care Team (Late st Contact Info) Description 02/13/2023 Refill [facility] [address] [place], [place] [phone] Yohana Bauer [facility] [address] [place] [address] Multiple sclerosis (CMS/HCC) Social History Tobacco Use Types Packs/Day Years Used Date Smoking Tobacco: Never Passive Smoke Exposure: Never Smokeless Tobacco: Never Alcohol Use Standard Drinks/Week Comments Never 0 (1 standard drink = 0.6 oz pur e alcohol) Depression Answer Date Recorded Patient Health Questionnaire-9 Score 0 11/22/2022 Depression Answer Date Recorded Patient Health Questionnaire-2 Score 0 11/22/2022 Comments Unknown Sex and Gender Information Value Date Recorded Sex Assigned at Female 03/28/2022 10:14 AM EDT Legal Sex Female 10:14 AM EDT Gender Identity Female 03/28/2022 10:14 AM EDT Sexual Orientation Straight 03/28/2022 10 :14 AM EDT documented as of this encounter Plan of Treatment Not on file documented as of this encounter Visit Diagnoses Diagnosis Multiple sclerosis (CMS/HCC) Multiple sclerosis documented in this encounter Additional Health Concerns Assessment Noted Time PHQ-9 Depression Total Score: 0 11/23/19 23 9:56 AM EDT documented as of this encounter Care Teams Net Development Manager Relationship Specialty Start Date End Date Yohana Bauer FNP [address] [place] [address] PCP - General Family Medicine 03/15/22 documented as of this encounter
--- OUTSIDE RECORDS SUMMARY | 2024-06-25 11:05 | XMS_ITS | Clinical Summary ---
Author Organization [employer] Address [address] [facility] 7t [place] [address] Care Team Providers Care Customer Experience Analyst Name Role Phone Amigo [facility] Primary Care Provider [phone] Allergies Active Allergy Reactions Criticality Noted Date Comments Sulfamethoxazole 05/25/2016 Other reaction(s): hives./itching Sulfamethoxazole-Trimethoprim 2022 Other reaction(s): Hives Trimethoprim 05/25/2016 Other reaction(s): hives./itching Medications Dimethyl Fumarate 240 MG capsule delayed-release 12/09/2022 Act evert pyridoxine (Vitamin B-6) 100 MG tablet Take 100 mg by mouth in the morning. 04/03/2023 Active D3 Super Strength 50 MCG (2000 UT) capsule Take 50 mcg by mouth in the morning. 03/28/2023 Active gabapentin (Neurontin) 400 MG capsuleIndicati ons:Multiple sclerosis (CMS/HCC) Take 1 capsule (400 mg) by mouth 3 times daily. 270 capsule 3 11/03/2023 Active cyclobenzaprine (Flexeril) 10 MG tabletIndicatio ns:Other chronic pain TAKE 1 TABLET BY MOUTH THREE TIMES DAILY IN THE MORNING, AT NOON, AND AT BEDTIME NEEDED FOR MUSCLE SPASMS 90 tablet 2 04/29/2024 Active Active Problems Problem Noted Date Diagnosed Date Left sided sciatica 11/08/2022 Assessment & Plan (11/08/2022 10:21 AM EDT): Exam consistent of sciatica. -Pt reports Hx of similar on the right side that resolved. -Some symptoms could be related to her demyelinating disease. -She has f/u with neurology. -She does have an MRI of the L spine that show L5-S1 extruded disc fragment compression left S1 nerve root. -Dr Donald offered minimual invasive discectomy if she does not get better with time. -Unclear if symptoms are related to L5 issue. -Continue gabapentin and muscle relaxer. -Referral to PT done. Healthcare maintenance 07/31/2022 Overview (08/23/2022): Pap: S/p hysterectomy with cervix removed age 38 due to benign menorrhagia. Discontinued pap at this time. Mammogram: 09/2021, BI-rads 1; on recall for repeat next month BMD: Routine age 64 CRC: 2014, referred 11/2021 for repeat, patient missed initial appointment. Will call to rescheduled HIV: Neg 12/2021 Hepatitis: HCV neg 12/2021 Screening Labs:. Lipids: 12/2021, WNL, repeat ordered today BMP: 12/2021 Cr 1.13; eGFR 59, stable CKD A1c: 5.3 2019 Assessment & Plan (06/09/2023 9:54 AM EST): ?? Mammogram reordered ?? Referral resubmitted to GI for CRC screening ?? Declines COVID vaccine Hyperlipidemia 07/25/2022 Hypertension 07/25/2022 Overview (11/24/2022): ?? Previously rx'd olmesartan-discontuned due to dizziness and hypotension. ?? BP currently managed with diet/exercise along Maintenance: BMP: 09/2022 Lipid Panel: 09/2022 ASCVD Risk: 1.5% EKG: Obtain baseline at f/u - Aerobic exercise to reduce BP. Initial goal of 30 min walk 3-5x/week. Increase as tolerated. - low-sodium diet (goal: <2g/day) and heart healthy diet such as DASH to reduce BP and prevent ASCVD. - Home BP monitoring 1-2 x day with goal of <140/90. - Seek immediate medical attention for chest pain, palpitations, SOB, syncope, or sudden changes in mental status. - Do not change or discontinue current prescriptions without first consulting health care provider Assessment & Plan (06/09/2023 9:52 AM EST): ?? Well controlled without BP medications Assessment & Plan (11/24/2022 8:11 AM EDT): ?? Well controlled without antihypertensive medications ?? Will continue to monitor Assessment & Plan (08/23/2022 12:07 PM EDT): ?? BP hypotensive on exam today ?? STOP olmesartan ?? Pt reports feeling too overwhelmed to monitor BP at home. ?? RN BP check 2 weeks ?? Reviewed ED precautions to include chest pain, shortness of breath, severe headache, sudden vision changes or BP >=180/>=120 mmHg. Contact HC if three or more BP readings >140/90. ?? Nephrolithiasis 07/25/2022 Multiple sclerosis 07/25/2022 Overview (11/24/2022): ?? Declined referral to MS clinic ?? Followed by [facility] neurology Stage 3 chronic kidney disease 07/05/2022 Overview (11/24/2022): ?? Mild ?? Creatine 09/2022 1.05 Thyroid nodule 06/16/2021 Overview (07/31/2022): - Biopsy 04/2021, negative Lumbar disc herniation with radiculopathy 2020 Overview (01/12/2023): ?? Hx of left L5-S1 extruded disc fragment compressing left S1 nerve root, previously offered L5-S1 minimally invasive discectomy. Pt not interested in surgery. ?? Followed by [facility] pain mngmt. Last seen 11/2022 with paln for f/u after updated MRI imaging Assessment & Plan (01/12/2023 8:03 PM EDT): ?? Given severity of sx despite treatment, will trial prednisone burst for relief of acute pain. Reviewed administration, risks, side effects ?? Follow up as scheduled with pain mngmt ?? Patient verbalizes understanding and agrees to plan Assessment & Plan (11/24/2022 8:17 AM EDT): ?? Follow up as scheduled with neurology for lumbar MRI ?? Will refer to pain mngmt for further evaluation ?? Discussed with patient that should severe pain reoccur she should contact HC for appointment to discuss acute pain mgnmt. Pt verbalizes understanding. ?? Seek emergency care for LE weakness, bowel/bladder dysfunction, fever, or saddle anesthesia. Gastroesophageal reflux disease without esophagi tis 05/25/2016 Overview (07/31/2022): - Hx of IBS, GERD, ?UC - Prior colonoscopy 05/12/2015: proctosigmoiditis, colonic mucosa w/ focal mild non-specific chronic inflammation and architectural distortion, mild active chronic colitis - Referred for repeat colonoscopy 11/2021 by previous PCP Chronic interstitial cystitis 05/25/2016 Overview (11/22/2022): - Followed by Dr. Dias at [facility] for hx of recurrent nephrolithiasis and interstitial cystitis -abdominal CT 07/2022 with 2 small non-obstructing left renal calculi. No persistent hematuria. Ulcerative colitis 05/25/2016 Overview (07/25/2022): Dr. Wan at [facility] Left ovarian cyst 03/02/2016 Overview (07/25/2022): 7x4.9cm multisepatate cyst, f/u manager unit/onc at [facility] Mild cognitive impairment 12/18/2015 PTSD (post-traumatic stress disorder) 12/07/2015 Major depression 11/13/2015 Overview (08/23/2022): ?? Not currently working with therapist or psych. Previously at [facility]. ?? H/o suicidal ideation and medication overdose ?? Declines referral to [facility] Resolved Problems Problem Noted Date Diagnosed Date Resolved Date Diabetes due to undrl condit ion w oth diabetic neuro comp 02/06/2024 02/06/2024 Recurrent UTI 07/25/2022 07/31/2022 Acute ankle pain 07/05/2022 07/31/2022 Arthritis of hip 07/05/2022 07/31/2022 Cervical radiculopathy 07/05/202207/31 Lumbar spondylosis 12/27/2017 Osteoarthritis of acromioclavicular joint 12/27/2017 07/31/2022 Mixed anxiety and depressive disorder 05/25/2016 07/31/2022 Chronic back pain 12/02/2015 07/31/2022 Esophageal reflux 12/02/2015 07/31/2022 Anxiety 11/13/2015 07/31/2022 Insomnia 11/13/2015 07/31/2022 Encounters Date Type Department Care Team Description 06/24/2024 Telephone [facility] [address] [place], [place] [phone] AmigoYohana FNP 05/08/2024 Telephone [facility] [address] [place], [place] [phone] AmigoYohana [facility] Nurse Triage 04/26/2024 Refill [facility] [address] [place], [place] [phone] AmigoYohana [facility] Other chronic pain from Last 3 Months Immunizations Name Administration Dates Next Due Influenza Injectable Quadriv alant Preservative Free IIV4 MDCK 02/21/2023 Influenza injectable quadriv alent IIV4 with preservative 04/05/2019 Influenza injectable quadrivalent preservative f ree 03/31/2022,05/15/2020 Tdap 05/25/2016 Zoster, Recombinant 02/21/2023,12/20/2022 Social History Tobacco Use Types Packs/Day Years Used Date Smoking Tobacco: Never Passive Smoke Exposure: Never Smokeless Tobacco: Never Tobacco Cessation:Counseling Given: Not Answered Alcohol Use Standard Drinks/Week Comments Never 0 (1 standard drink = 0.6 oz pur e alcohol) Depression Answer Date Recorded Patient Health Questionnaire-9 Score 2 02/07/2024 Patient Health Questionnaire-9 Score 2 02/07/2024 Last PHQ-9: Questionnaire Data Not on file 0 02/07/2024 Housing Stability Answer Date Recorded What is your housing situation today? Not on alyse e 02/07/[address] you li ve. Do you have problems with any of the following? None of the above 02/07/2024 Food Insecurity Answer Date Recorded Within the past 12 months, y ou worried that your food would run out before you got money to buy more: Never True 02/07/2024 Within the past 12 months,th e food you bought just didn't last and you didn't have enough money to get more: Never True 03/2024 Transportation Answer Date Recorded In the past 12 months, has l ack of transportation kept you from medical appts, meetings, work or from getting things needed for daily living? No 02/07/2024 Utilities Answer Date Recorded In the past 12 months, has t he electric, gas, oil or water company threatened to shut off services in your home? No 02/07/2024 Depression Answer Date Recorded Patient Health Questionnaire-2 Score 0 02/07/2024 Internet Access Answer Date Recorded Internet Access Q1 No 02/07/2024 Internet Access Q2 I do not want or need it 01/27 Comments Unknown Sex and Gender Information Value Date Recorded Sex Assigned at Female 03/28/2022 10:14 AM EDT Legal Sex Female 10:14 AM EDT Gender Identity Female 03/28/2022 10:14 AM EDT Sexual Orientation Straight 03/28/2022 10 :14 AM EDT Last Filed Vital Signs Vital Sign Reading Time Taken Comments Blood Pressure 143/91 09/12/2023 1:58 PM EDT Pulse 85 09/12/2023 1:58 PM EDT Temperature 36.7 ??C (98 ??F) 09/12/2023 1:58 PM EDT Respiratory Rate 20 09/12/2023 1:58 PM EDT Oxygen Saturation 99% 09/12/2023 1:58 PM EDT Inhaled Oxygen Concentration - - Weight 59.8 kg (131 lb 12.8 oz) 09/12/2023 1:58 PM EDT Height 160 cm (5' 3 ) 09/12/2023 1:58 PM EDT Body Mass Index 23.35 09/12/2023 1:58 PM EDT Plan of Treatment Health Maintenance Due Date Last Done Comments CT Colonography 1969 Colonoscopy 1969 Colorectal Cancer Screening 1969 FIT DNA/Cologuard 1969 FIT 1969 FOBT 1969 Sigmoidoscopy 1969 Alcohol/Substance Use Screening 1981 Hepatitis B Vaccines (1 of 3 - 19+ 3-dose series) 1988 Pap Smear 1990 HPV/Cotest 1999 SDOH Screening 11/23/2023 11/22/2022 COVID-19 Vaccine ( season) 2024 10/21/2020, 09/23/2020 Influenza Vaccine (#1) 2024 , 03/31/2022, 05/15/2020, Additional history exists Depression Screening 02/06/2025 02/07/2024, 02/07/20 24 Tobacco Screening 02/08/2025 02/09/2024 Mammogram 06/20/2025 06/20/2023, 09/27, 10/06/2020, Additional history exists DTaP/Tdap/Td Vaccines (2 - Td or Tdap) 05/25/2026 05/25/2016 Lipid Panel 05/25/2028 05/25/2023, 05/0 08/2022, 12/27/2021 RSV Patients and Patients Aged 60 years or older (1 - 1-dose 75+ series) 2044 HIV Screening Completed 12/27/2021 Hepatitis C Screening Completed 12/27/2021 Zoster Vaccines Completed 02/21/2023, 12/20/2022 Cervical Cancer Screening Discontinued HIB Vaccines Aged Out No longer eligi ble based on patient's age to complete this topic HPV Vaccines Aged Out No longer eligi ble based on patient's age to complete this topic Hepatitis A Vaccines Aged Out No long er eligible based on patient's age to complete this topic IPV Vaccines Aged Out No longer eligi ble based on patient's age to complete this topic Meningococcal Vaccine Aged Out No reese carolyn eligible based on patient's age to complete this topic Pneumococcal Vaccine: Pediatrics (0 to 5 Years) and At-Risk Patients (6 to 64 Years) Aged Out No longer eligible based on patient's age to complete this topic RSV under 20 months Aged Out No longe r eligible based on patient's age to complete this topic Rotavirus Vaccines Aged Out No longer eligible based on patient's age to complete this topic Procedures Procedure Name Priority Date/Time Associated Diagnosis Comments BI MAMMOGRAM SCREENING TOMOSYNTHESIS BILATERAL Routine 06/20/2023 10:30 AM EST Breast cancer screening by mammogram LIPID PANEL, STANDARD Routine 05/25/2023 9:57 AM EST Primary hypertension ZZZ HISTORICAL HEPATITIS C AB W/REFL TO HCV RNA, QN, PCR Routine 12/27/2021 10:31 AM EDT HIV 1/2 ANTIGEN/ANTIBODY, FOURTH GENERATION W/RFL Routine 12/27/2021 10:31 AM EDT from Last 3 Months or Most Recently Relevant to Health Maintenance Results * BI Mammogram Screening Tomosynthesis Bilateral (06/20/2023 10:30 AM EST) Anatomical Region Laterality Modality Breast Bilateral Mammography 06/20/2023 10:3 0 AM EST Narrative 07/04/2023 5:02 AM EST ? [facility] ? [address] ?[place] [address] ? Mammography Report ? Signed ? Patient: Angelia Tucker ?MR#: [id number] ?? [id number] ? : 1970 ?Acct:[id number] ? Age/Sex: 53 / F ?ADM Date: /23/24 ? Loc: HO.MAMMO ? Attending Dr: Yohana Lizette TRUCK ENGINE ASSEMBLER ? Ordering Physician: Amigo,Yohana TRUCK ENGINE ASSEMBLER ?Results: 1Nega ?? tive ? Date of Service: 06/20/23 ?Follow Up: 1 Year From Orig ?? inal Mammogram ? Procedure(s): MM tomosynthesis screening BI ?? Accession Number(s): [id number] ? cc: Amigo,Yohana TRUCK ENGINE ASSEMBLER ? EXAMINATION: ?? MM SCREENING DIGITAL BREAST TOMOSYNTHESIS, BILATERAL ? CLINICAL INFORMATION: ? Screening. Asymptomatic. ? COMPARISON: ?? Mammography: This study is compared with prior exams dating back to ?? 2018. ? TECHNIQUE: ?? Digital breast tomosynthesis is performed in both the craniocaudal and ?? mediolateral oblique views along with computer-aided detection (CAD). ?? Synthesized 2D images are generated from the tomosynthesis. ? FINDINGS: ?? There are scattered areas of fibroglandular density (ACR BI-RADS breast ?? composition Category b). ? There are no significant masses, abnormal calcifications, or other ?? abnormalities. ? MM/MM tomosynthesis screening BI ?? IMPRESSION: ?? No mammographic evidence of malignancy. ? ASSESSMENT: ? BI-RADS BI-RADS 1 - Negative ? RECOMMENDATION: ?? Routine annual mammography screening. ? 1 year F/U ? This examination should not preclude the clinical evaluation of a ?? suspicious palpable abnormality. ? This patient's information was entered into a reminder system with a ?? target due date for their next mammogram. ? Dictated By: ?Anitra Duke MD ? Signed By: ?<Electronically signed by Anitra Duke MD in OV> ? 07/04/23 0458 ? DD/ ? TD/TT: ? College Specialist: ? Procedure Note Julia, Image - 07/04/2023 [facility] [address] [place] [address] Dr. Gross, SARAH [address] Mammography Report Signed Patient: Angelia Tucker [facility]#: [id number] : 1970Acct:[id number] Age/Sex: 53 / FADM Date: 06/20/23 Loc: THONG Attending Dr: Yohana THAOP Ordering Physician: Yohana Bauer FNPResults: 1Nega tive Date of Service: 06/20/23Follow Up: 1 Year From Orig inal Mammogram Procedure(s): MM tomosynthesis screening BI Accession Number(s): [id number] cc: Yohana Bauer TRUCK ENGINE ASSEMBLER EXAMINATION: MM SCREENING DIGITAL BREAST TOMOSYNTHESIS, BILATERAL CLINICAL INFORMATION: Screening. Asymptomatic. COMPARISON: Mammography: This study is compared with prior exams dating back to 2018. TECHNIQUE: Digital breast tomosynthesis is performed in both the craniocaudal and mediolateral oblique views along with computer-aided detection (CAD). Synthesized 2D images are generated from the tomosynthesis. FINDINGS: There are scattered areas of fibroglandular density (ACR BI-RADS breast composition Category b). There are no significant masses, abnormal calcifications, or other abnormalities. MM/MM tomosynthesis screening BI IMPRESSION: No mammographic evidence of malignancy. ASSESSMENT: BI-RADS BI-RADS 1 - Negative RECOMMENDATION: Routine annual mammography screening. 1 year F/U This examination should not preclude the clinical evaluation of a suspicious palpable abnormality. This patient's information was entered into a reminder system with a target due date for their next mammogram. Dictated By: Anitra Duke MD Signed By: <Electronically signed by Anitra Duke MD in OV> 07/04/23 0458 DD/ 1030 TD/TT: College Specialist: [facility] IMG BI PROCEDURES Edited Resu lt - Final * (ABNORMAL) Lipid Panel, Standard (05/25/2023 9:57 AM EST) Triglycerides 114 <150 mg/dL [facility] Comment:Desirable Triglyceri de: less than 150 mg/dLBorderline High Triglyceride 150-199 mg/dLHigh Triglyceride: 200-499 mg/dLVery High Triglyceride: greater than or equal to 5OO mg/dL Cholesterol 265(H) <200 mg/dL [facility] Comment:Desirable Cholestero l: less than 200 mg/dLBorderline High Cholesterol: 200-239 mg/dLHigh Cholesterol: greater than 239 mg/dL LDL Cholesterol Calculated 182(H) <100 mg/dL [facility] Comment:Desirable LDL: less than 100 mg/dLNear Optimal/Above Optimal LDL: 110- 129 mg/dLBorderline High LDL: 130-159 mg/dLHigh LDL: 160-189 mg/dLVery High LDL: greater than or equal to 190 mg/dL HDL Cholesterol 61 >40 mg/dL [facility] Comment:Desirable HDL: great er than 40 mg/dL Note: This HDL assay may give artificially low results in patients with liver disease. Blood Venous blood specimen / Unknown 05/25/2023 9:57 AM EST 05/25/2023 1:33 PM EST [facility] LAB BLOOD ORDERABLES Final Re sult Performing Organization Address [facility] Co de Phone Number [facility] [address] [place] [phone] * HEPATITIS C AB W/REFL TO HCV RNA, QN, PCR (12/27/2021 10:31 AM EDT) HEPATITIS C ANTIBODY NON-REACT EVERT NON-REACT EVERT [facility] INDEX 0.11 <1.00 [facility] Comment: ?? HCV antibody was non-reactive. There is no laboratory ?? evidence of HCV infection. ?? In most cases, no further action is required. However, if recent HCV exposure is suspected, a test for HCV RNA (test code 53431) is suggested. ?? For additional information please refer to http://education.Fancloud/faq/JUK49a7 (This link is being provided for informational/ educational purposes only.) ?? 12/27/2021 10:3 1 AM EDT Kamala rGegory [employer]LLER HISTORICAL/NON ORDERABLE LABS Final Result Performing Organization Address [facility]/ZIP Co de Phone Number [facility] [address] * HIV 1/2 ANTIGEN/ANTIBODY,FOURTH GENERATION W/RFL (12/27/2021 10:31 AM EDT) HIV-1/2 ANTIGEN AND ANTIBODIES, 4TH GENERATION W/ REFLEX NON-REACT EVERT NON-REACT EVERT [facility] Comment: HIV-1 antigen and HIV-1/HIV-2 antibodies were not detected. There is no laboratory evidence of HIV infection. ?? PLEASE NOTE: This information has been disclosed to you from records whose confidentiality may be protected by state law. ??If your state requires such protection, then the state law prohibits you from making any further disclosure of the information without the specific written consent of the person to whom it pertains, or as otherwise permitted by law. A general authorization for the release of medical or other information is NOT sufficient for this purpose. ? For additional information please refer to http://education.Fancloud/faq/CDX949 (This link is being provided for informational/ educational purposes only.) ? The performance of this assay has not been clinically validated in patients less than 2 years old. ?? 12/27/2021 10:3 1 AM EDT us Kamala Gregory [facility] LAB BLOOD ORDERABLES Final Res ult Performing Organization Address [facility] de Phone Number [facility] [address] from Last 3 Months or Most Recently Relevant to Health Maintenance Insurance [facility] [place] [address] [address] Care Teams Customer Experience Analyst Relationship Specialty Start Date End Date AmigoYohana FNP [address] [place] [id number] PCP - General Family Medicine 03/15/22
--- OUTSIDE RECORDS SUMMARY | 2024-06-25 11:05 | XMS_ITS | Encounter Summary ---
Author Organization [employer] [facility] Address [address] [place] [address] [address] [place] [address] Care Team Providers Care [employer]cre[employer]ical Helicopter Name Role Phone LizetteYohana ENVIRONMENTAL REMEDIATION SPECIALIST Primary Care Provider [phone] Encounter Details Date Type Department Care Team ([facility] st Contact Info) Description 06/08/2022 Orders Only [facility] [address] [place], [place] [phone] Kinsey Cedeno LPN Social History Tobacco Use Types Packs/Day Years Used Date Smoking Tobacco: Never Assessed Comments Unknown Sex and Gender Information Value Date Recorded Sex Assigned at Female 03/28/2022 10:14 AM EDT Legal Sex Female 10:14 AM EDT Gender Identity Female 03/28/2022 10:14 AM EDT Sexual Orientation Straight 03/28/2022 10 :14 AM EDT documented as of this encounter Plan of Treatment Not on file documented as of this encounter Visit Diagnoses Not on filedocumented in this encounter Care Teams [employer]opter Relationship Specialty Start Date End Date Yohana Bauer FNP [address] [place] [address] PCP - General Family Medicine 03/15/22 documented as of this encounter
--- OUTSIDE RECORDS SUMMARY | 2024-06-25 11:05 | XMS_ITS | Encounter Summary ---
Author Organization [facility] Address [address] [place] [address] 7t [place] [address] Care Team Providers Care Litigation Claim Representative Name Role Phone LizetteYohana [facility] Primary Care Provider [phone] Reason for Visit * Reason Onset Date Comments Med Refill 02/02/2023 Encounter Details Date Type Department Care Team (Late st Contact Info) Description 02/02/2023 Refill [facility] MEDICINE 230 [place], [place] [phone] Yohana Bauer [facility] 230 [place] [address] Multiple sclerosis (CMS/HCC) Social History Tobacco Use [...] documented as of this encounter Care Teams Litigation Claim Representative Relationship Specialty Start Date End Date Yohana Bauer FNP 230 [place] [address] PCP - General Family Medicine 03/15/22 documented as of this encounter
--- OUTSIDE RECORDS SUMMARY | 2024-06-25 11:05 | XMS_ITS | Encounter Summary ---
Author Organization [employer] Address [address] [facility] 7t [place] [address] Care Team Providers Care Educational Audiologist Name Role Phone [facility] Primary Care Provider [phone] Reason for Visit * Reason Onset Date Comments Med Refill 07/25/2023 Encounter Details Date Type Department Care Team ([facility] st Contact Info) Description 07/25/[address] [facility] MEDICINE 230 [place], [place] [phone] [facility] 230 [place] [address] Other chronic pain Social History Tobacco Use Types Packs/Day Years Used Date Smoking Tobacco: Never Passive Smoke Exposure: Never Smokeless Tobacco: Never Alcohol Use Standard Drinks/Week Comments Never 0 (1 standard drink = 0.6 oz pur e alcohol) Depression Answer Date Recorded Patient Health Questionnaire-9 Score 0 11/22/2022 Housing Stability Answer Date Recorded What is your housing situation today? I have latrell morris 03/23/[address] you li ve. Do you have problems with any of the following? None of the above 03/23/2023 Food Insecurity Answer Date Recorded Within the past 12 months, y ou worried that your food would run out before you got money to buy more: Never True 03/23/2023 Within the past 12 months,th e food you bought just didn't last and you didn't have enough money to get more: Never True Transportation Answer Date Recorded In the past 12 months, has l ack of transportation kept you from medical appts, meetings, work or from getting things needed for daily living? No 03/23/2023 Utilities Answer Date Recorded In the past 12 months, has t he electric, gas, oil or water company threatened to shut off services in your home? No 03/23/2023 Depression Answer Date Recorded Patient Health Questionnaire-2 [...] as of this encounter Visit Diagnoses Diagnosis Other chronic pain documented in this encounter Additional Health Concerns Assessment Noted Time PHQ-9 Depression Total Score: 0 11/23/19 23 9:56 AM EDT documented as of this encounter Care Teams Educational Audiologist Relationship Specialty Start Date End Date Yohana Bauer FNP [address] [place] [address] PCP - General Family Medicine 03/15/22 documented as of this encounter
--- OUTSIDE RECORDS SUMMARY | 2024-06-25 11:05 | XMS_ITS | Encounter Summary ---
Author Organization [employer] Address 75 [facility] 7t [place] [address] Care Team Providers Care Spud Driller Name Role Phone [facility] Primary Care Provider [phone] Reason for Visit * Reason Onset Date Comments Med Refill 08/08/2023 Encounter Details Date Type Department Care Team ([facility] st Contact Info) Description 08/08/2023 Refill [facility] MEDICINE 230 [place], [place] [phone] [facility] 230 [place] [address] Multiple sclerosis ([facility]) Social History Tobacco Use Types Packs/Day Years [...] documented as of this encounter Care Teams Spud Driller Relationship Specialty Start Date End Date Yohana Bauer FNP [address] [place] [address] PCP - General Family Medicine 03/15/22 documented as of this encounter
--- OUTSIDE RECORDS SUMMARY | 2024-06-25 11:05 | XMS_ITS | Encounter Summary ---
Author Organization [facility] Address [address] [place] [address] 7t [place] [address] Care Team Providers Care Feller Seam Operator Name Role Phone Crystal SpringYohana [facility] Primary Care Provider Reason for Visit * Reason Onset Date Comments Med Refill 02/01/2023 Encounter Details Date Type Department Care Team (Late st Contact Info) Description 02/01/2023 Refill [facility] MEDICINE 230 [place], [place] [phone] Yohana Bauer [facility] 230 [place] [address] Multiple sclerosis (CMS/HCC) Social History Tobacco Use [...] documented as of this encounter Care Teams Feller Seam Operator Relationship Specialty Start Date End Date Yohana Bauer FNP 230 [place] [address] PCP - General Family Medicine 03/15/22 documented as of this encounter
--- OUTSIDE RECORDS SUMMARY | 2024-06-25 11:05 | XMS_ITS | Encounter Summary ---
Author Organization [employer] Address 75 [facility] 7t [place] [address] Care Team Providers Care Instrumentation Tech Name Role Phone [facility] Primary Care Provider [phone] Reason for Visit * Reason Onset Date Comments Med Refill 11/07/2023 Encounter Details Date Type Department Care Team ([facility] st Contact Info) Description 11/07/2023 Refill [facility] MEDICINE 230 [place], [place] [phone] [facility] 230 [place] [address] Multiple sclerosis ([facility]) Social History Tobacco Use Types [...] documented as of this encounter Care Teams Instrumentation Tech Relationship Specialty Start Date End Date Yohana Bauer FNP [address] [place] [address] PCP - General Family Medicine 03/15/22 documented as of this encounter
--- OUTSIDE RECORDS SUMMARY | 2024-06-25 11:05 | XMS_ITS | Encounter Summary ---
Author Organization [employer] Address [address] [facility] [address] 7t [place] [address] Care Team Providers Care Marketing Director Assisted Living Name Role Phone [facility] Primary Care Provider [phone] Encounter Details Date Type Department Care Team ([facility] Contact Info) Description 06/24/2024 Telephone [facility] MEDICINE 230 [place], [place] [phone] [place], [facility] 230 [place], [place] [phone] Social History Tobacco Use Types Packs/Day Years [...] AM EDT documented as of this encounter Miscellaneous Notes * Telephone Encounter - Demetra Sung - 06/24/2024 8:22 AM EST Called pt no answer lvm to inform them that there appt for 06/24/24 has been cancelled due to the provider being out and they can call us back to rs appt. documented in this encounter Plan of Treatment Not on file documented as of this encounter Visit Diagnoses Not on filedocumented in this encounter Additional Health Concerns Assessment Noted Time PHQ-9 Depression Total Score: 2 02/07/20 24 10:17 AM EDT documented as of this encounter Care Teams Marketing Director Assisted Living Relationship Specialty Start Date End Date Yohana Bauer FNP [address] [place] [address] PCP - General Family Medicine 03/15/22 documented as of this encounter
--- OUTSIDE RECORDS SUMMARY | 2024-06-25 11:05 | XMS_ITS | Encounter Summary ---
Author Organization [employer] [facility] Address [address] [place] [address] 7t [place] [address] Care Team Providers Care Multimedia Technician Name Role Phone [facility] Primary Care Provider [phone] Reason for Visit * Reason Onset Date Comments Med Refill 02/04/2023 Encounter Details Date Type Department Care Team (Late st Contact Info) Description 02/04/2023 Refill [facility] MEDICINE 230 [place], [place] [phone] [place] [facility] 230 [place] [address] Other chronic pain Social History Tobacco Use [...] documented as of this encounter Care Teams Multimedia Technician Relationship Specialty Start Date End Date Yohana Bauer PATROL SERGEANT 230 [place] [address] PCP - General Family Medicine 03/15/22 documented as of this encounter
--- OUTSIDE RECORDS SUMMARY | 2024-06-25 11:05 | XMS_ITS | Encounter Summary ---
Author Organization [facility] Address [address] [place] [address] 7t [place] [address] Care Team Providers Care Rooming House Keeper Name Role Phone LizetteYohana [facility] Primary Care Provider [phone] Reason for Visit * Reason Onset Date Comments Med Refill 02/04/2023 Encounter Details Date Type Department Care Team (Late st Contact Info) Description 02/04/[address] [facility] MEDICINE 230 [place], [place] [phone] Yohana Bauer [facility] 230 [place] [address] Multiple sclerosis (CMS/HCC) Social History Tobacco Use [...] documented as of this encounter Care Teams Rooming House Keeper Relationship Specialty Start Date End Date Yohana Bauer FNP 230 [place] [address] PCP - General Family Medicine 03/15/22 documented as of this encounter
--- OUTSIDE RECORDS SUMMARY | 2024-06-25 11:05 | XMS_ITS | Encounter Summary ---
Author Organization [employer] Address 75 [facility] 7t [place] [address] Care Team Providers Care Ambulette Driver Name Role Phone Yohana Bauer SYSTEMS SUPPORT ENGINEER Primary Care Provider [phone] Encounter Details Date Type Department Care Team ([facility] st Contact Info) Description 06/06/[address] [facility] MED & PEDS [address] [place] [address] Humaira Goetz LPN Social History Tobacco Use Types Packs/Day [...] on filedocumented in this encounter Care Teams Ambulette Driver Relationship Specialty Start Date End Date Yohana Bauer FNP [address] [place] [address] PCP - General Family Medicine 03/15/22 documented as of this encounter
--- OUTSIDE RECORDS SUMMARY | 2024-06-25 11:05 | XMS_ITS | Encounter Summary ---
Author Organization [employer] [facility] Address [address] [place] [address] 7t [place] [address] Care Team Providers Care Stock Associate Name Role Phone LizetteYohana [facility] Primary Care Provider [phone] Reason for Visit * Reason Onset Date Comments Med Refill 02/13/2023 Encounter Details Date Type Department Care Team (Late st Contact Info) Description 02/13/2023 Refill [facility] MEDICINE 230 [place], [place] [phone] Yohana Bauer [facility] 230 [place] [address] Multiple sclerosis (CMS/HCC) Social History Tobacco Use [...] documented as of this encounter Care Teams Stock Associate Relationship Specialty Start Date End Date Yohana Bauer FNP 230 [place] [address] PCP - General Family Medicine 03/15/22 documented as of this encounter
--- OUTSIDE RECORDS SUMMARY | 2024-06-25 11:05 | XMS_ITS | Encounter Summary ---
Author Organization [employer] [facility] Address [address] [place] [address] 7t [place] [address] Care Team Providers Care Chimney Supervisor Brick Name Role Phone [facility] Primary Care Provider [phone] Reason for Visit * Reason Onset Date Comments Med Refill 02/13/2023 Encounter Details Date Type Department Care Team ([facility] st Contact Info) Description 02/13/2023 Refill [facility] MEDICINE 230 [place], [place] [phone] [place] [facility] 230 [place] [address] Other chronic pain Social History Tobacco Use [...] documented as of this encounter Care Teams Chimney Supervisor Brick Relationship Specialty Start Date End Date Yohana Bauer FNP 230 [place] [address] PCP - General Family Medicine 03/15/22 documented as of this encounter
== END 2024-06-25 10:13 | disposition home or self-care (01) ==
LOC: HO.MAMMO 10:12
PROVIDERS: PCP Registered Nurse; Visit Provider Registered Nurse
DX: Z12.31 Encounter for screening mammogram for malignant neoplasm of breast (principal)
CPT/HCPCS: 77063; 77067

== ENCOUNTER → 2024-06-25 10:30 | Outpatient (BNV) | CPT/HCPCS: 77063; 77067 ==

== ENCOUNTER 2025-03-14 13:50 | Outpatient (REF) | payer OTHER, SELFPAY ==
--- NOTE | ~2025-03-14 | US_ITS ---
EXAMINATION: US KIDNEY BILATERAL HISTORY: N20.0 - Calculus of kidney TECHNIQUE: Real-time grayscale ultrasound imaging of the kidneys was performed and images were reviewed. COMPARISON: Comparison is made with the prior examination dated 08/31/2023. FINDINGS: Right kidney: The right kidney measures 8.1 x 4.1 x 4.4 cm. Renal parenchymal echotexture and thickness are normal. There are no masses. There are multiple nonobstructing calculi measuring up to 4 mm at the upper pole, 2 mm in the interpolar region, and 2 mm the lower pole. There is no hydronephrosis. Left Kidney: The left kidney measures 9.3 x 4.1 x 3.9 cm. Renal parenchymal echotexture and thickness are normal. There are no masses. There is a 2 mm nonobstructing calculus at the lower pole. There is no hydronephrosis. US/US renal BI IMPRESSION: Bilateral nephrolithiasis as described. Electronically signed by: Uri Knight MD 03/14/2025 02:28 PM EDT
--- OUTSIDE RECORDS SUMMARY | 2025-03-14 16:15 | XMS_ITS | Encounter Summary ---
Author Organization [employer] Address [address] [facility] 7t [place] [address] Care Team Providers Care Top Closer Name Role Phone Yohana Bauer [facility] Primary Care Provider [phone] Encounter Details Date Type Department Care Team (Late st Contact Info) Description 03/14/2025 Orders Only [facility] External Provider, [facility] Social History Tobacco Use Types Packs/Day Years [...] on file documented as of this encounter Procedures Procedure Name Priority Date/Time Associated Diagnosis Comments US RENAL COMPLETE Routine 03/14/2025 1:5 6 PM EDT documented in this encounter Results * US Renal Complete (03/14/2025 1:56 PM EDT) Anatomical Region Laterality Modality Kidney Ultrasound 03/14/2025 1:56 PM EDT Narrative 03/14/2025 2:30 PM EDT [facility] [address] [place] [address] [place] [address] Ultrasound Report Signed Patient: Angelia Tucker MR#: [id number] : 1970 Acct:[id number] Age/Sex: 55 / F ADM Date: 03/14/25 Loc: HO.HMGCX Attending Dr: Amara CARR Ordering Physician: Amara Ho Date of Service: 03/14/25 Procedure(s): US renal BI Accession Number(s): [id number] cc: Amara Ho; [facility] Reason for Exam: N20.0 - Calculus of kidney EXAMINATION: US KIDNEY BILATERAL HISTORY: N20.0 - Calculus of kidney TECHNIQUE: Real-time grayscale ultrasound imaging of the kidneys was performed and images were reviewed. COMPARISON: Comparison is made with the prior examination dated 08/31/2023. FINDINGS: Right kidney: The right kidney measures 8.1 x 4.1 x 4.4 cm. Renal parenchymal echotexture and thickness are normal. There are no masses. There are multiple nonobstructing calculi measuring up to 4 mm at the upper pole, 2 mm in the interpolar region, and 2 mm the lower pole. There is no hydronephrosis. Left Kidney: The left kidney measures 9.3 x 4.1 x 3.9 cm. Renal parenchymal echotexture and thickness are normal. There are no masses. There is a 2 mm nonobstructing calculus at the lower pole. There is no hydronephrosis. US/US renal BI IMPRESSION: Bilateral nephrolithiasis as described. Electronically signed by: Uri Knight MD 03/14/2025 02:28 PM EDT RP Dictated By: Uri Knight MD Signed By: <Electronically signed by Uri Knight MD in OV> 03/14/25 1428 DD/ 1356 TD/TT: 03/14/25 1425 Market Gardener: Procedure Note Donotuseinterpreter, Image - 03/14/2025 [facility] [address] [place] [address] [place] [address] Ultrasound Report Signed Patient: Angelia Tucker [facility]#: [id number] : 1970Acct:[id number] Age/Sex: 55 / FADM Date: 03/14/25 Loc: HO.HMGCX Attending Dr: Amara CARUSO Ordering Physician: Amara Ho Date of Service: 03/14/25 Procedure(s): US renal BI Accession Number(s): [id number] cc: Amara Ho; [facility] Reason for Exam: N20.0 - Calculus of kidney EXAMINATION: US KIDNEY BILATERAL HISTORY: N20.0 - Calculus of kidney TECHNIQUE: Real-time grayscale ultrasound imaging of the kidneys was performed and images were reviewed. COMPARISON: Comparison is made with the prior examination dated 08/31/2023. FINDINGS: Right kidney: The right kidney measures 8.1 x 4.1 x 4.4 cm. Renal parenchymal echotexture and thickness are normal. There are no masses. There are multiple nonobstructing calculi measuring up to 4 mm at the upper pole, 2 mm in the interpolar region, and 2 mm the lower pole. There is no hydronephrosis. Left Kidney: The left kidney measures 9.3 x 4.1 x 3.9 cm. Renal parenchymal echotexture and thickness are normal. There are no masses. There is a 2 mm nonobstructing calculus at the lower pole. There is no hydronephrosis. US/US renal BI IMPRESSION: Bilateral nephrolithiasis as described. Electronically signed by: Uri Knight MD 03/14/2025 02:28 PM EDT RP Dictated By: Uri Knight MD Signed By: <Electronically signed by Uri Knight MD in OV> 03/14/25 1428 DD/ 1356 TD/TT: 03/14/25 142 Market Gardener: [facility] External Provider IMG US PROCEDURES Final Result documented in this encounter Visit Diagnoses Not on filedocumented in this encounter Additional Health Concerns Assessment Noted Time PHQ-9 Depression Total Score: 2 02/07/20 24 10:17 AM EDT documented as of this encounter Care Teams Top Closer Relationship Specialty Start Date End Date Yohana Bauer FNP [address] [place] [address] PCP - General Family Medicine 03/15/22 documented as of this encounter
--- OUTSIDE RECORDS SUMMARY | 2025-03-14 16:15 | XMS_ITS | Encounter Summary ---
Author Organization [employer] Address [address] [place] [address] 7 [place] [address] Care Team Providers Care Grinder Mill Operator Name Role Phone [facility] Primary Care Provider [phone] Reason for Visit * Reason Onset Date Comments Med Refill 02/13/2023 Encounter Details Date Type Department Care Team ([facility] st Contact Info) Description 02/13/2023 Refill [facility] MEDICINE 230 [place], [place] [phone] [place] [facility] 230 [place] [address] Other chronic pain Social History Tobacco Use [...] documented as of this encounter Care Teams Grinder Mill Operator Relationship Specialty Start Date End Date Yohana Bauer FNP 230 [place] [address] PCP - General Family Medicine 03/15/22 documented as of this encounter
--- OUTSIDE RECORDS SUMMARY | 2025-03-14 16:15 | XMS_ITS | Encounter Summary ---
Author Organization [employer] Address [address] [place] [address] 7t [place] [address] Care Team Providers Care Daycare Assistant Name Role Phone Yohana Bauer Primary Care Provider [phone] Encounter Details Date Type Department Care Team ([facility] st Contact Info) Description 06/06/2022 Orders Only [facility] CHC MED & PEDS [address] [place] [address] Humaira Goetz LPN Social History Tobacco Use [...] on filedocumented in this encounter Care Teams Daycare Assistant Relationship Specialty Start Date End Date Yohana Bauer FNP [address] [place] [address] PCP - General Family Medicine 03/15/22 documented as of this encounter
--- OUTSIDE RECORDS SUMMARY | 2025-03-14 16:15 | XMS_ITS | Encounter Summary ---
Author Organization [employer] Address [address] [place] [address] 7 [place] [address] Care Team Providers Care Plumber Maintenance Name Role Phone [facility] Primary Care Provider [phone] Reason for Visit * Reason Onset Date Comments Med Refill 07/25/2023 Encounter Details Date Type Department Care Team ([facility] st Contact Info) Description 07/25/[address] [facility] MEDICINE 230 [place], [place] [phone] [facility] 230 [place] [address] Other chronic pain Social History Tobacco Use [...] documented as of this encounter Care Teams Plumber Maintenance Relationship Specialty Start Date End Date Yohana Bauer FNP [address] [place] [address] PCP - General Family Medicine 03/15/22 documented as of this encounter
--- OUTSIDE RECORDS SUMMARY | 2025-03-14 16:15 | XMS_ITS | Encounter Summary ---
Author Organization [employer] Address [address] [place] [address] 7 [place] [address] Care Team Providers Care Cost Coordinator Name Role Phone Yohana Bauer [facility] Primary Care Provider [phone] Reason for Visit * Reason Onset Date Comments Med Refill 02/01/2023 Encounter Details Date Type Department Care Team (Late st Contact Info) Description 02/01/2023 Refill [facility] MEDICINE 230 [place], [place] [phone] Yohana Bauer [facility] 230 [place] [address] Multiple sclerosis ([facility]) Social History Tobacco Use Types Packs/Day Years [...] this encounter Visit Diagnoses Diagnosis Multiple sclerosis documented in this encounter Additional Health Concerns Assessment Noted Time PHQ-9 Depression Total Score: 0 11/23/19 23 9:56 AM EDT documented as of this encounter Care Teams Cost Coordinator Relationship Specialty Start Date End Date Yohana Bauer FNP [address] [place] [address] PCP - General Family Medicine 03/15/22 documented as of this encounter
--- OUTSIDE RECORDS SUMMARY | 2025-03-14 16:15 | XMS_ITS | Encounter Summary ---
Author Organization [employer] Address [address] [place] [address] 7 [place] [address] Care Team Providers Care Script Artist Name Role Phone [facility] Primary Care Provider [phone] Reason for Visit * Reason Onset Date Comments Med Refill 02/04/2023 Encounter Details Date Type Department Care Team (Late st Contact Info) Description 02/04/2023 Refill [facility] MEDICINE 230 [place], [place] [phone] [place] [facility] 230 [place] [address] Other chronic pain Social History Tobacco Use [...] documented as of this encounter Care Teams Script Artist Relationship Specialty Start Date End Date Yohana Bauer FNP 230 [place] [address] PCP - General Family Medicine 03/15/22 documented as of this encounter
--- OUTSIDE RECORDS SUMMARY | 2025-03-14 16:15 | XMS_ITS | Encounter Summary ---
Author Organization [employer] Address [address] [place] [address] 7 [place] [address] Care Team Providers Care Childcare Worker Name Role Phone [facility] Primary Care Provider [phone] Reason for Visit * Reason Onset Date Comments Med Refill 11/07/2023 Encounter Details Date Type Department Care Team ([facility] st Contact Info) Description 11/07/2023 Refill [facility] MEDICINE 230 [place], [place] [phone] [place] [facility] 230 [place] [address] Multiple sclerosis ([facility]) Social History Tobacco Use Types Packs/Day Years [...] documented as of this encounter Care Teams Childcare Worker Relationship Specialty Start Date End Date Yohana Bauer FNP [address] [place] [address] PCP - General Family Medicine 03/15/22 documented as of this encounter
--- OUTSIDE RECORDS SUMMARY | 2025-03-14 16:15 | XMS_ITS | Encounter Summary ---
Author Organization [employer] Address [address] [place] [address] 7 [place] [address] Care Team Providers Care Lehr Cutter Name Role Phone Yohana Bauer [facility] Primary Care Provider [phone] Reason for Visit * Reason Onset Date Comments Med Refill 02/13/2023 Encounter Details Date Type Department Care Team (Late st Contact Info) Description 02/13/2023 Refill [facility] MEDICINE 230 [place], [place] [phone] Yohana Bauer [facility] 230 [place] [address] Multiple sclerosis ([facility]) Social History Tobacco Use Types [...] documented as of this encounter Care Teams Lehr Cutter Relationship Specialty Start Date End Date Yohana Bauer FNP [address] [place] [address] PCP - General Family Medicine 03/15/22 documented as of this encounter
--- OUTSIDE RECORDS SUMMARY | 2025-03-14 16:15 | XMS_ITS | Encounter Summary ---
Author Organization [employer] Address [address] [place] [address] 7 [place] [address] Care Team Providers Care Obstetric Assistant Name Role Phone [facility] Primary Care Provider [phone] Reason for Visit * Reason Onset Date Comments Med Refill 08/08/2023 Encounter Details Date Type Department Care Team ([facility] st Contact Info) Description 08/08/[address] [facility] [address] [place], [place] [phone] [facility] [address] [place] [address] Multiple sclerosis ([facility]) Social History Tobacco Use Types [...] documented as of this encounter Care Teams Obstetric Assistant Relationship Specialty Start Date End Date Yohana Bauer FNP [address] [place] [phone] PCP - General Family Medicine 03/15/22 documented as of this encounter
--- OUTSIDE RECORDS SUMMARY | 2025-03-14 16:15 | XMS_ITS | Clinical Summary ---
Author Organization [employer] Address [address] [place] [address] 7t [place] [address] Care Team Providers Care Advance Agent Name Role Phone [facility] Primary Care Provider [phone] Allergies Active Allergy Reactions Criticality Noted Date Comments Sulfamethoxazole 05/25/2016 Other reaction(s): hives./itching Sulfamethoxazole-Trimethoprim 2022 Other reaction(s): Hives Trimethoprim 05/25/2016 Other reaction(s): hives./itching Medications Dimethyl Fumarate 240 MG capsule delayed-release 12/09/2022 Act clarisse pyridoxine (Vitamin B-6) 100 MG tablet Take 100 mg by mouth in the morning. 04/03/2023 Active D3 Super Strength 50 MCG (1999 UT) capsule Take 50 mcg by mouth in the morning. 03/28/2023 Active gabapentin (Neurontin) 400 MG capsuleIndicati ons:Multiple sclerosis Take 1 capsule (400 mg) by mouth 3 times daily. 270 capsule 3 11/01/2024 Active cyclobenzaprine (Flexeril) 10 MG tabletIndicatio ns:Other chronic pain TAKE 1 TABLET BY MOUTH THREE TIMES DAILY IN THE MORNING, AT NOON, AND AT BEDTIME NEEDED FOR MUSCLE SPASMS 90 tablet 2 02/07/2025 Active Active Problems Problem Noted Date Diagnosed [...] 1.13; eGFR 59, stable CKD A1c: 5.3 2020 Assessment & Plan (06/09/2023 9:54 AM EST): Mammogram reordered Referral resubmitted to GI for CRC screening Declines COVID vaccine Hyperlipidemia 07/25/2022 Hypertension 07/25/2022 Overview (11/24/2022): Previously rx'd olmesartan-discontuned due to dizziness and hypotension. BP currently managed with diet/exercise along Maintenance: [...] Assessment & Plan (06/09/2023 9:52 AM EST): Well controlled without BP medications Assessment & Plan (11/24/2022 8:11 AM EDT): Well controlled without antihypertensive medications Will continue to monitor Assessment & Plan (08/23/2022 12:07 PM EDT): BP hypotensive on exam today STOP olmesartan Pt reports feeling too overwhelmed to monitor BP at home. RN BP check 2 weeks Reviewed ED precautions to include chest pain, shortness of breath, severe headache, sudden vision changes or BP >=180/>=120 mmHg. Contact HC if three or more BP readings >140/90. Nephrolithiasis 07/25/2022 Multiple sclerosis 07/25/2022 Overview (11/24/2022): Declined referral to MS clinic Followed by [facility] neurology Stage 3 chronic kidney disease (CMS/HCC) 023 Overview (11/24/2022): Mild Creatine 09/2022 1.05 Thyroid nodule 06/16/2021 Overview (07/31/2022): - Biopsy 04/2021, negative Lumbar disc herniation with radiculopathy 2020 Overview (01/12/2023): Hx of left L5-S1 extruded disc fragment compressing left S1 nerve root, previously offered L5-S1 minimally invasive discectomy. Pt not interested in surgery. Followed by [facility] pain mngmt. Last seen 11/2022 with paln for f/u after updated MRI imaging Assessment & Plan (01/12/2023 8:03 PM EDT): Given severity of sx despite treatment, will trial prednisone burst for relief of acute pain. Reviewed administration, risks, side effects Follow up as scheduled with pain mngmt Patient verbalizes understanding and agrees to plan Assessment & Plan (11/24/2022 8:17 AM EDT): Follow up as scheduled with neurology for lumbar MRI Will refer to pain mngmt for further evaluation Discussed with patient that should severe pain reoccur she should contact HC for appointment to discuss acute pain mgnmt. Pt verbalizes understanding. Seek emergency care for LE weakness, bowel/bladder [...] (11/22/2022): - Followed by Dr. Dias at [facility] for hx of recurrent nephrolithiasis and interstitial cystitis -abdominal CT 07/2022 with 2 small non-obstructing left renal calculi. No persistent hematuria. Ulcerative colitis 05/25/2016 Overview (07/25/2022): Dr. Wan at [facility] Left ovarian cyst 03/02/2016 Overview (07/25/2022): 7x4.9cm multisepatate cyst, f/u vp respiratory/onc at [facility] Mild cognitive impairment 12/18/2015 PTSD (post-traumatic stress disorder) 12/07/2015 Major depression 11/13/2015 Overview (08/23/2022): Not currently working with therapist or psych. Previously at [facility]. H/o suicidal ideation and medication overdose Declines referral to N Resolved Problems Problem Noted Date Diagnosed Date [...] Encounters Date Type Department Care Team Description 03/14/2025 Orders Only [facility] External Provider, [facility] 02/07/2025 Refill [facility] & PEDS [address] [place], [place] [phone] Yohana Bauer FNP Other chronic pain 02/04/2025 Telephone [facility] MEDICINE [address] [place] [address] Yohana Bauer FNP Chart Prep 01/29/2025 Travel 12/26/2024 Telephone [facility] MEDICINE [address] [place] [address] [place] [facility] chart prep 12/20/2024 Travel from Last 3 Months Immunizations Immunization Administration Dates Next Due Influenza Injectable Quadriv [...] 85 09/12/2023 1:58 PM EDT Temperature 36.7 C (98 F) 09/12/2023 1:58 PM EDT Respiratory Rate 20 [...] series) 1988 Pap Smear 1990 HPV/Cotest 1999 Pneumococcal Vaccine: 50+ Years (1 of 1 - PCV) 2019 SDOH Screening 11/23/2023 11/22/2022 COVID-19 Vaccine (3 - season) 2025 10/21/2020, 09/23/2020 Influenza Vaccine (#1) 2025 , 03/31/2022, 05/15/2020, Additional history exists Depression Screening 02/06/2025 02/07/2024, 02/07/20 24 Tobacco Screening 02/08/2025 02/09/2024 Mammogram 06/25/2025 06/25/2024, 05/30, 10/18/2021, Additional history exists Disability Screening 12/20/2025 12/20/2024 DTaP/Tdap/Td Vaccines (2 - Td or Tdap) [...] patient's age to complete this topic Meningococcal B Vaccine Aged Out No l onger eligible based on patient's age to complete [...] COMPLETE Routine 03/14/2025 1:5 6 PM EDT BI MAMMOGRAM SCREENING TOMOSYNTHESIS BILATERAL Routine 06/25/2024 10:30 AM EST LIPID PANEL, STANDARD Routine 05/25/2023 9:57 AM EST Primary hypertension ZZZ HISTORICAL HEPATITIS C AB W/REFL TO HCV RNA, QN, PCR Routine 12/27/2021 10:31 AM EDT HIV 1/2 ANTIGEN/ANTIBODY, FOURTH GENERATION W/RFL Routine 12/27/2021 10:31 AM EDT from Last 3 Months or Most Recently Relevant to Health Maintenance Results * US Renal Complete (03/14/2025 1:56 PM EDT) Anatomical Region Laterality Modality Kidney Ultrasound 03/14/2025 1:56 PM EDT Narrative 03/14/2025 2:30 PM EDT [facility] [address] [place] [address] [place] [address] Ultrasound Report Signed Patient: Angelia Tucker MR#: [id number] : 1970 Acct:[id number] Age/Sex: 55 / F ADM Date: 03/14/25 Loc: HO.HMGCX Attending Dr: Amara CARR Ordering Physician: Amara Ho Date of Service: 03/14/25 Procedure(s): US renal BI Accession Number(s): [id number] cc: Amara Ho; [facility] Reason for Exam: N20.0 - Calculus of [...] 03/14/25 1428 DD/ 1356 TD/TT: 03/14/25 1425 Well Blower: Procedure Note Donotuseinterpreter, Image - 03/14/2025 [facility] [address] [place] [address] [place] [address] Ultrasound Report Signed Patient: Angelia Tucker [facility]#: [id number] : 1970Acct:[id number] Age/Sex: 55 / FADM Date: 03/14/25 Loc: HO.HMGCX Attending Dr: Amara CARR Ordering Physician: Amara Ho Date of Service: 03/14/25 Procedure(s): US renal BI Accession Number(s): [id number] cc: Amara Ho; [facility] Reason for Exam: N20.0 - Calculus of [...] in OV> 03/14/25 1428 DD/ 1356 TD/TT: 03/14/251424 Well Blower: [facility] External Provider IMG US PROCEDURES Final Result * BI Mammogram Screening Tomosynthesis Bilateral (06/25/2024 10:30 AM EST) Anatomical Region Laterality Modality Breast Bilateral Mammography 06/25/2024 10:3 0 AM EST Narrative 07/05/2024 12:55 PM EST [facility]'[address] [place] [address] Mammography Report Signed Patient: Angelia Tucker MR#: [id number] : 1970 Acct:[id number] Age/Sex: 54 / F ADM Date: 06/25/24 Loc: MAMMO Attending Dr: Yohana Bauer TRAIN PLANNER Ordering Physician: Yohana Bauer Results: 1Nega tive Date of Service: 06/25/24 Follow Up: 1 Year From [facility] Mammogram Procedure(s): MM tomosynthesis screening BI Accession Number(s): [id number] cc: Yohana Bauer TRAIN PLANNER EXAMINATION: MM SCREENING DIGITAL BREAST TOMOSYNTHESIS, BILATERAL CLINICAL INFORMATION: Screening. Asymptomatic. COMPARISON: Mammography: Comparison is made with available priors TECHNIQUE: Digital breast mammography with tomosynthesis is performed in both the craniocaudal and mediolateral oblique views along with computer-aided detection (CAD). FINDINGS: The breasts are heterogeneously dense, which may obscure small masses (ACR BI-RADS breast composition Category c). There are no significant masses, abnormal calcifications, [...] target due date for their next mammogram. Electronically signed by: Nita Robles DO 07/05/2024 12:52 PM [facility] Dictated By: Nita Robles DO Signed By: <Electronically signed by Nita Robles DO in OV> 07/05/24 1252 DD/ 1030 TD/TT: 06/25/24 1058 Well Blower: Procedure Note Donotuseinterpreter, Image - 07/05/2024 [facility] [address] [place], [place] [address] Mammography Report Signed Patient: Angelia Tucker DMR#: [id number] : 1970Acct:[id number] Age/Sex: 54 / FADM Date: 06/25/24 Loc: MAMMO Attending Dr: Yohana Bauer TRAIN PLANNER Ordering Physician: Yohana Bauer FNPResults: 1Nega tive Date of Service: 06/25/24Follow Up: 1 Year From Orig inal Mammogram Procedure(s): MM tomosynthesis screening BI Accession Number(s): [id number] cc: Yohana Bauer TRAIN PLANNER EXAMINATION: MM SCREENING DIGITAL BREAST TOMOSYNTHESIS, BILATERAL CLINICAL INFORMATION: Screening. Asymptomatic. COMPARISON: Mammography: Comparison is made with available priors TECHNIQUE: Digital breast mammography with tomosynthesis is performed in both the craniocaudal and mediolateral oblique views along with computer-aided detection (CAD). FINDINGS: The breasts are heterogeneously dense, which may obscure small masses (ACR BI-RADS breast composition Category c). There are no significant masses, abnormal calcifications, [...] target due date for their next mammogram. Electronically signed by: Nita Robles DO 07/05/2024 12:52 PM EST RP Dictated By: Nita Robles DO Signed By: <Electronically signed by Nita Robles DO in OV> 07/05/24 1252 DD/ 1030 TD/TT: 06/25/24 1058 Well Blower: [facility] TRAIN PLANNER IMG BI PROCEDURES Final Resul t * (ABNORMAL) Lipid Panel, Standard (05/25/2023 9:57 AM EST) Triglycerides 114 <150 mg/dL [facility] Comment:Desirable Triglyceri de: less than 150 mg/dLBorderline High Triglyceride 150-199 mg/dLHigh Triglyceride: 200-499 mg/dLVery High Triglyceride: greater than or equal to 5OO mg/dL Cholesterol 265(H) <200 mg/dL [facility] Comment:Desirable Cholestero l: less than 200 mg/dLBorderline High Cholesterol: 200-239 mg/dLHigh Cholesterol: greater than 239 mg/dL LDL Cholesterol Calculated 182(H) <100 mg/dL [facility] Comment:Desirable LDL: less than 100 mg/dLNear Optimal/Above Optimal LDL: 110- 129 mg/dLBorderline High LDL: 130-159 mg/dLHigh LDL: 160-189 mg/dLVery High LDL: greater than or equal to 190 mg/dL HDL Cholesterol 61 >40 mg/dL [facility] Comment:Desirable HDL: great er than 40 mg/dL Note: This HDL assay may give artificially low results in patients with liver disease. Blood Venous blood specimen / Unknown 05/25/2023 9:57 AM EST 05/25/2023 1:33 PM EST [facility] TRAIN PLANNER LAB BLOOD ORDERABLES Final Re sult [facility] [address] [place] [address] [phone] * HEPATITIS C AB W/REFL TO HCV RNA, QN, PCR (12/27/2021 10:31 AM EDT) HEPATITIS C ANTIBODY NON-REACT CLARISSE NON-REACT CLARISSE [facility] INDEX 0.11 <1.00 [facility] Comment: HCV antibody was non-reactive. There is no laboratory evidence of HCV infection. In most cases, no further action is required. However, if recent HCV exposure is suspected, a test for HCV RNA (test code 13422) is suggested. For additional information please refer to http://education.Hazelcast/faq/AAB41v2 (This link is being provided for informational/ educational purposes only.) 12/27/2021 10:3 1 AM EDT Kamala Bri [facility]TER HISTORICAL/NON ORDERABLE LABS Final Result Performing Organization Address City/[facility] Co de Phone Number [facility] [address] * HIV 1/2 ANTIGEN/ANTIBODY,FOURTH GENERATION W/RFL (12/27/2021 10:31 AM EDT) HIV-1/2 ANTIGEN AND ANTIBODIES, 4TH GENERATION W/ REFLEX NON-REACT CLARISSE NON-REACT CLARISSE [facility] Comment: HIV-1 antigen and HIV-1/HIV-2 antibodies were not detected. There is no laboratory evidence of HIV infection. PLEASE NOTE: This information has been disclosed to you from records whose confidentiality may be protected by state law. If your state requires such protection, then the state law prohibits you from making any further disclosure of the information without the specific written consent of the person to whom it pertains, or as otherwise permitted by law. A general authorization for the release of medical or other information is NOT sufficient for this purpose. For additional information please refer to http://education.Chromatin.com/faq/HQS865 (This link is being provided for informational/ educational purposes only.) The performance of this assay has not been clinically validated in patients less than 2 years old. 12/27/2021 10:3 1 AM EDT us Kamala Gregory AUTOMATED LOGISTICS SPECIALIST LAB BLOOD ORDERABLES Final Res ult [facility]ly [facility] [address] from Last 3 Months or Most Recently Relevant to Health Maintenance [place] [address] [facility] < [address] [place] [id number] * Guarantor: Angelia Tucker Account Type Relation to Patient Date of Phone Billing Address Personal/[place] [address] * Guarantor: Angelia Tucker Account Type Relation to Patient Date of Phone Billing Address Personal/[place] [address] * Guarantor: Angelia Tucker Account Type Relation to Patient Date of Phone Billing Address Personal/[place] [address] Care Teams Advance Agent Relationship Specialty Start Date End Date Yohana Bauer FNP [address] [place] [address] PCP - General Family Medicine 03/15/22
--- OUTSIDE RECORDS SUMMARY | 2025-03-14 16:15 | XMS_ITS | Encounter Summary ---
Author Organization [employer] Address [address] [place] [address] 7 [place] [address] Care Team Providers Care Radiation Engineer Name Role Phone Yoh[facility]auer [facility] Primary Care Provider [phone] Reason for Visit * Reason Onset Date Comments Med Refill 02/04/2023 Encounter Details Date Type Department Care Team (Late st Contact Info) Description 02/04/2023 Refill [facility] MEDICINE [address] [place], [place] [phone] Yohana Bauer [facility] [address] [place] [address] Multiple sclerosis ([facility]) Social History Tobacco Use [...] documented as of this encounter Care Teams Radiation Engineer Relationship Specialty Start Date End Date Yohana Bauer FNP [address] [place] [phone] PCP - General Family Medicine 03/15/22 documented as of this encounter
--- OUTSIDE RECORDS SUMMARY | 2025-03-14 16:15 | XMS_ITS | Encounter Summary ---
Author Organization [employer] Address [address] [place] [address] 7 [place] [address] Care Team Providers Care Brick Maker Name Role Phone Yohana Bauer [facility] Primary Care Provider [phone] Reason for Visit * Reason Onset Date Comments Med Refill 02/02/2023 Encounter Details Date Type Department Care Team (Late st Contact Info) Description 02/02/2023 Refill [facility] MED[facility]INE [address] [place], [place] [phone] Yohana Bauer [facility] [address] [place] [address] Multiple sclerosis ([facility]) Social History Tobacco Use Types Packs/Day Years [...] documented as of this encounter Care Teams Brick Maker Relationship Specialty Start Date End Date Yohana Bauer FNP [address] [place] [address] PCP - General Family Medicine 03/15/22 documented as of this encounter
--- OUTSIDE RECORDS SUMMARY | 2025-03-14 16:15 | XMS_ITS | Encounter Summary ---
Author Organization [employer] Address [address] [place] [address] 7t [place] [address] Care Team Providers Care Slot Shift Supervisor Name Role Phone [place] ER[place] Primary Care Provider Encounter Details Date Type Department Care Team ([facility] st Contact Info) Description 06/08/2022 Orders Only [facility] MEDICINE [address] [place] [address] Kinsey Cedeno LPN Social History Tobacco Use [...] on filedocumented in this encounter Care Teams Slot Shift Supervisor Relationship Specialty Start Date End Date Yohana Bauer FNP [address] [place] [address] PCP - General Family Medicine 03/15/22 documented as of this encounter
--- OUTSIDE RECORDS SUMMARY | 2025-03-14 16:15 | XMS_ITS | Encounter Summary ---
Author Organization [employer] Address [address] [place] [address] 7 [place] [address] Care Team Providers Care Life Insurance Agent Name Role Phone Yohana Bauer [facility] Primary Care Provider [phone] Reason for Visit * Reason Onset Date Comments Med Refill 02/13/2023 Encounter Details Date Type Department Care Team (Late st Contact Info) Description 02/13/2023 Refill [facility] MEDICINE [address] [place], [place] [phone] Yohana Bauer [facility] [address] [place] [address] Multiple sclerosis ([facility]) Social History Tobacco Use Types Packs/Day [...] documented as of this encounter Care Teams Life Insurance Agent Relationship Specialty Start Date End Date Yohana Bauer FNP [address] [place] [phone] PCP - General Family Medicine 03/15/22 documented as of this encounter
== END 2025-03-14 13:51 | disposition home or self-care (01) ==
LOC: HO.HMGCX 13:50
PROVIDERS: PCP Registered Nurse; Visit Provider Nurse Practitioner Family
DX: N20.0 Calculus of kidney (principal); R31.9 Hematuria, unspecified; N30.10 Interstitial cystitis (chronic) without hematuria
CPT/HCPCS: 76775

== ENCOUNTER → 2025-03-14 13:52 | Outpatient (BNV) | payer OTHER, SELFPAY | PROVIDERS: PCP Registered Nurse; Visit Provider Radiology Diagnostic Radiology | DX: N20.0 Calculus of kidney (principal) | CPT/HCPCS: 76775 ==

== ENCOUNTER 2025-05-12 13:17 | Outpatient (AMB) | payer OTHER, SELFPAY ==
--- NOTE | 2025-05-12 13:22 | A.OFFVIS_ITS ---
Intake Visit Reasons: US/UA Intake Note: Reason for Visit: UA/Ultrasound Follow Up Urology Medication: Vitamin B6 Blood Thinners: None Imaging: Renal US 03/14/2025 Labs: None Last PVR: None Unable to provide a urine sample today Greenhouse Superintendent Required: No Accompanied by: Self / Same As Patient Allergies trimethoprim (From Bactrim) Allergy (Mild, Verified 05/12/25 14:23) HIVES Sulfa (Sulfonamide Antibiotics) Allergy (Unknown, Verified 05/12/25 14:23) Hives Medication List - Last Reconciled 05/12/25 by LILLY Phillips cholecalciferol (vitamin D3) (Vitamin D3) 50 mcg PO DAILY cyclobenzaprine 10 mg PO TID dimethyl fumarate mg PO gabapentin 400 mg PO TID pyridoxine (vitamin B6) 100 mg PO DAILY 90 days HPI Comments Details: Angelia is a pleasant 55-year-old female patient of Dr. Bauer. She has a past medical history of depression, interstitial cystitis, IBS, stroke, arthritis, renal calculi, and heartburn. She presents to the office today for follow-up of her interstitial cystitis and nephrolithiasis. In discussion with the patient today she reports to be doing and feeling well. She denies having had any bothersome urinary issues or concerns since her last office visit here over a year ago. Most recent renal imaging results reviewed with the patient today. Bilateral kidneys with normal parenchymal echotexture and thickness. There are no renal masses or hydronephrosis noted bilaterally. 2 mm, 2 mm, and 4 mm nonobstructing right renal calculi. Left kidney with 2 mm nonobstructing calculi. Unable to obtain urine for urinalysis today as patient unable to void. She reports she had been compliant with vitamin B6 daily however refill in his requesting refill today. She does report to be drinking plenty of water daily. When asked she denies urinary urgency, urinary frequency, incontinence, nocturia, hematuria, dysuria, foul smelling urine, changes to urinary stream, flank pain, fever, and or chills. We did discussed decrease in stone burden over the last 14 months. She otherwise denies any other issues or concerns at this time. [facility] Medical History History of stroke Recurrent major depression in complete remission Interstitial cystitis IBS (irritable colon syndrome) Proctosigmoiditis Patellofemoral pain syndrome of left knee Arthritis Heart burn Cystitis Kidney stone Surgical History H/O colonoscopy Family History Mother No problems noted. Father No problems noted. Maternal Grandfather Heart disease Maternal Grandmother Heart disease Paternal Grandfather Heart disease Paternal Grandmother Heart disease Social History Household Members: None Alcohol intake: never Patient Tobacco Use Status: Never used Tobacco Current occupational status: disabled Current occupation: right handed Review of Systems Const Reports as per HPI Eyes Reports no additional complaints ENT Reports no additional complaints Card Reports no additional complaints Resp Reports no additional complaints GI Reports as per HPI Reports as per HPI Musc Reports as per HPI Neuro Reports as per HPI Psych Reports as per HPI Endo Reports no additional complaints Eliseo/Lymph Reports no additional complaints Aller/Immun Reports no additional complaints Physical Exam Const General: cooperative, healthy appearing, comfortable, no acute distress, well developed, alert and awake Orientation/consciousness: patient oriented x3 Limitations: no limitations HEENT Head: Yes normal to inspection, Yes normocephalic and Yes atraumatic Ears: hearing grossly normal bilaterally Eyes General: appearance normal, both eyes and all related structures Neck Neck: Yes normal visual inspection and Yes trachea midline Chest Chest palpation & inspection: normal inspection of the chest Resp Effort & Inspection: normal respiratory effort and able to speak in complete sentences Cardio Rate: regular rate GI Inspection: Yes normal to inspection General: Yes no CVA tenderness Back/Spine/Pelvis Back: no CVA tenderness Skin General skin exam: no rashes or lesions noted Neuro General: patient oriented x3 Extrem General: Yes normal to inspection Psych Appearance: grossly normal and well kempt Mental Status: mental status grossly normal Speech and movement: Normal speech and movement present and Clear speech present Affect: normal affect Attitude: cooperative Thought process: Normal thought process present Thought content: Normal thought content present Insight: Fair insight present (Psych) Judgement: Fair judgement present (Psych) Results Reviewed Results Reviewed: Date of Service: 03/14/25 Procedure(s): US renal BI FINDINGS: Right kidney: The right kidney measures 8.1 x 4.1 x 4.4 cm. Renal parenchymal echotexture and thickness are normal. There are no masses. There are multiple nonobstructing calculi measuring up to 4 mm at the upper pole, 2 mm in the interpolar region, and 2 mm the lower pole. There is no hydronephrosis. Left Kidney: The left kidney measures 9.3 x 4.1 x 3.9 cm. Renal parenchymal echotexture and thickness are normal. There are no masses. There is a 2 mm nonobstructing calculus at the lower pole. There is no hydronephrosis. IMPRESSION: Bilateral nephrolithiasis as described. Assessment & Plan Assessment & Plan (1) Kidney stone: Code(s): N20.0 - Calculus of kidney Category: Medical (2) Interstitial cystitis: Code(s): N30.10 - Interstitial cystitis (chronic) without hematuria Category: Medical Plan Unable to obtain urine for urinalysis today as patient unable to void. She currently denies any bothersome urinary issues concerns. She reports be happy with current voiding parameters. All questions were answered. Most recent renal imaging results reviewed with the patient today; as noted above. We did discussed the importance of adequate hydration relation to nephrol ithiasis as well as overall health and well-being. We discussed adding 1 oz of lemon juice to water daily. Will continue with surveillance monitoring. Restart vitamin B6 50 mg daily as discussed and prescribed. Will obtain renal ultrasound in 1 year. Follow-up in 1 year with imaging to be completed prior; or sooner with any issues, concerns, and or questions. Orders: Orders US renal BI 1 Year N20.0 - Calculus of kidney Medications: Changed From pyridoxine (vitamin B6) 100 mg PO DAILY 90 days 90 tabs 4RF N20.0 - Calculus of kidney To pyridoxine (vitamin B6) 50 mg (1/2 x 100 mg) PO DAILY 45 tabs 4RF 90 days N20.0 - Calculus of kidney Patient Instructions: The patient had an opportunity to ask questions regarding the treatment plan. All questions were answered. Physical exam, labs, and imaging were discussed and reviewed in detail. As well as risks, benefits, and discussion of treatment choices. No major barriers to understanding were identified. The patient expressed understanding and agreement with the above treatment plan. The patient was made aware they should contact our office by phone for worsening of their current condition, the appearance of new symptoms, or with any questions or concerns. Compliance is encouraged with any medications and follow up testing that is ordered. It is a privilege to be allowed the opportunity to participate in? your urological care.? Again, if you have any questions or concerns If you have any questions or concerns please do not hesitate to contact me. The office is [phone]. This note is constructed using voice recognition software. While every effort has been made to ensure accuracy living coach errors may have been included. Yours sincerely, LILLY Phillips Coding Level of Care Code Est Pt Level 3 (14501) Add On Problem Visit Only Diagnoses Kidney stone N20.0 Interstitial cystitis N30.10
--- OUTSIDE RECORDS SUMMARY | 2025-05-12 19:16 | XMS_ITS | Encounter Summary ---
Author Organization [employer] Address [address] [place] [address] 7 [place] [address] Care Team Providers Care Instrumental Musician Name Role Phone [facility] Primary Care Provider [phone] Reason for Visit * Reason Onset Date Comments Med Refill 07/25/2023 Encounter Details Date Type Department Care Team ([facility] st Contact Info) Description 07/25/2023 Refill [facility] MEDICINE [address] [place], [place] [phone] [facility] 230 [place] [address] Other chronic pain Social History Tobacco Use [...] documented as of this encounter Care Teams Instrumental Musician Relationship Specialty Start Date End Date Yohana Bauer FNP [address] [place] [address] PCP - General Family Medicine 03/15/22 documented as of this encounter
--- OUTSIDE RECORDS SUMMARY | 2025-05-12 19:16 | XMS_ITS | Encounter Summary ---
Author Organization [employer] Address [address] [place] [address] 7t [place] [address] Care Team Providers Care Domestic Housekeeper Name Role Phone Yohana Bauer Primary Care Provider [phone] Encounter Details Date Type Department Care Team ([facility] st Contact Info) Description 06/06/[address] [facility] MED & PEDS [address] [place] [address] Humaira Goetz LPN Social History Tobacco Use [...] on filedocumented in this encounter Care Teams Domestic Housekeeper Relationship Specialty Start Date End Date Yohana Bauer FNP [address] [place] [address] PCP - General Family Medicine 03/15/22 documented as of this encounter
--- OUTSIDE RECORDS SUMMARY | 2025-05-12 19:16 | XMS_ITS | Encounter Summary ---
Author Organization [employer] Address [address] [place] [address] 7 [place] [address] Care Team Providers Care Reed Press Feeder Name Role Phone [facility] Primary Care Provider [phone] Reason for Visit * Reason Onset Date Comments Med Refill 02/13/2023 Encounter Details Date Type Department Care Team (Late st Contact Info) Description 02/13/2023 Refill [facility] MEDICINE 230 [place], [place] [phone] Yohana Bauer [facility] 230 [place] [address] Multiple sclerosis ([facility]) Social History Tobacco Use Types Packs/Day [...] documented as of this encounter Care Teams Reed Press Feeder Relationship Specialty Start Date End Date Yohana Bauer FNP [address] [place] [address] PCP - General Family Medicine 03/15/22 documented as of this encounter
--- OUTSIDE RECORDS SUMMARY | 2025-05-12 19:16 | XMS_ITS | Encounter Summary ---
Author Organization [email or web address] Address [address] [place] [address] 7 [place] [address] Care Team Providers Care Sweep Press Operator Name Role Phone Yohana Bauer [facility] Primary Care Provider [phone] Reason for Visit * Reason Onset Date Comments Med Refill 02/02/2023 Encounter Details Date Type Department Care Team (Late st Contact Info) Description 02/02/2023 Refill [facility] MEDICINE [address] [place], [place] [phone] Yohana Bauer [facility] 230 [place] [address] Multiple sclerosis ([facility]) Social History Tobacco Use Types Packs/Day Years [...] documented as of this encounter Care Teams Sweep Press Operator Relationship Specialty Start Date End Date Yohana Bauer FNP [address] [place] [address] PCP - General Family Medicine 03/15/22 documented as of this encounter
--- OUTSIDE RECORDS SUMMARY | 2025-05-12 19:16 | XMS_ITS | Encounter Summary ---
Author Organization [employer] Address [address] [facility] 7t [place] [address] Care Team Providers Care Account Group Supervisor Name Role Phone [facility] Primary Care Provider [phone] Reason for Visit * Reason Comments Med Refill Encounter Details Date Type Department Care Team (Late st Contact Info) Description 05/07/2025 Refill [facility] MED & PEDS [address] [place] [phone] [facility] [address] [place] [address] Other chronic pain Social History Tobacco Use [...] documented as of this encounter Care Teams Account Group Supervisor Relationship Specialty Start Date End Date Yohana Bauer FNP [address] [place] [address] PCP - General Family Medicine 03/15/22 documented as of this encounter
--- OUTSIDE RECORDS SUMMARY | 2025-05-12 19:16 | XMS_ITS | Encounter Summary ---
Author Organization [employer] Address [address] [place] [address] 7 [place] [address] Care Team Providers Care Network Operations Project Manager Name Role Phone [facility] Primary Care Provider [phone] Reason for Visit * Reason Onset Date Comments Med Refill 02/04/2023 Encounter Details Date Type Department Care Team (Late st Contact Info) Description 02/04/2023 Refill [facility] MEDICINE 230 [place], [place] [phone] [facility] 230 [place] [address] Other chronic pain Social History Tobacco Use [...] documented as of this encounter Care Teams Network Operations Project Manager Relationship Specialty Start Date End Date Yohana Bauer FNP [address] [place] [address] PCP - General Family Medicine 03/15/22 documented as of this encounter
--- OUTSIDE RECORDS SUMMARY | 2025-05-12 19:16 | XMS_ITS | Encounter Summary ---
Author Organization [employer] Address [address] [place] [address] 7 [place] [address] Care Team Providers Care Naval Police Coxswain Name Role Phone Yohana Bauer [facility] Primary Care Provider [phone] Reason for Visit * Reason Onset Date Comments Med Refill 02/13/2023 Encounter Details Date Type Department Care Team (Late st Contact Info) Description 02/13/2023 Refill [facility] MEDICINE 230 [place], [place] [phone] Yohana Bauer [facility] [address] [place] [address] Multiple sclerosis ([facility]) Social History Tobacco [...] documented as of this encounter Care Teams Naval Police Coxswain Relationship Specialty Start Date End Date Yohana Bauer FNP [address] [place] [address] PCP - General Family Medicine 03/15/22 documented as of this encounter
--- OUTSIDE RECORDS SUMMARY | 2025-05-12 19:16 | XMS_ITS | Clinical Summary ---
Author Organization [employer] Address [address] [place] [address] 7t [place] [address] Care Team Providers Care Power Station Operator Name Role Phone Yohana Bauer [facility] Primary Care Provider [phone] Allergies Active Allergy Reactions Criticality Noted Date Comments Sulfamethoxazole 05/25/2016 Other reaction(s): hives./itching Sulfamethoxazole-Trimethoprim 2022 Other reaction(s): Hives Trimethoprim 05/25/2016 Other reaction(s): hives./itching Medications Dimethyl Fumarate 240 MG capsule delayed-releas e 3 Active pyridoxine (Vitamin B-6) 100 MG tablet Take 100 mg by mouth in the morning. 3 Active D3 Super Strength 50 MCG (1999 UT) capsule Take 50 mcg by mouth in the morning. 3 Active gabapentin (Neurontin) 400 MG capsuleIndicat ions:Multiple sclerosis Take 1 capsule (400 mg) by mouth 3 times daily. 270 capsule 3 05/05/2025 3:18 PM EST 5 11/02/19 26 Active cyclobenzaprin e (Flexeril) 10 MG tabletIndicati ons:Other chronic pain TAKE 1 TABLET BY MOUTH THREE TIMES DAILY IN THE MORNING, AT NOON, AND AT BEDTIME NEEDED FOR MUSCLE SPASMS 90 tablet 2 5 Active cyclobenzaprin e (Flexeril) 10 MG tabletIndicati ons:Other chronic pain TAKE 1 TABLET BY MOUTH THREE TIMES DAILY IN THE MORNING, AT NOON, AND AT BEDTIME NEEDED FOR MUSCLE SPASMS 90 tablet 2 04/15/2025 1:31 PM EST 5 05/07/20 25 Discontinued Active Problems Problem Noted Date Diagnosed Date [...] Pt not interested in surgery. Followed by [facility] pain mngmt. Last seen 11/2022 with paln [...] (11/22/2022): - Followed by Dr. Dias at [facility] for hx of recurrent nephrolithiasis and interstitial cystitis -abdominal CT 07/2022 with 2 small non-obstructing left renal calculi. No persistent hematuria. Ulcerative colitis 05/25/2016 Overview (07/25/2022): Dr. 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 Previously at [facility]. H/o suicidal ideation and medication overdose Declines referral to [facility] Resolved Problems Problem Noted Date Diagnosed [...] Encounters Date Type Department Care Team Description 05/07/2025 Refill [facility] [address] [place] [address] [place], [facility], [facility] Other chronic pain 03/14/2025 Orders Only [facility] External Provider, [facility] from Last 3 Months Immunizations Immunization Administration [...] PM EDT Narrative 03/14/2025 2:30 PM EDT [facility] [address] [place] [address] [place] [address] Ultrasound Report Signed Patient: Angelia Tucker MR#: [id number] : 1970 Acct:[id number] Age/Sex: 55 / F ADM Date: 03/14/25 Loc: HO.HMGCX Attending Dr: Amara CARR Ordering Physician: Amara Ho Date of Service: 03/14/25 Procedure(s): US renal BI Accession Number(s): [id number] cc: Amara Ho; [facility] Reason for Exam: N20.0 - Calculus of [...] 03/14/25 1428 DD/ 1356 TD/TT: 03/14/25 1425 Dowel Pointer: Procedure Note Donotuseinterpreter, Image - 03/14/2025 [facility] [address] [place] [address] [place] [address] Ultrasound Report Signed Patient: Angelia Tucker [facility]#: [id number] : 1970Acct:[id number] Age/Sex: 55 / FADM Date: 03/14/25 Loc: HO.HMGCX Attending Dr: Amara CARR Ordering Physician: Amara Ho Date of Service: 03/14/25 Procedure(s): US renal BI Accession Number(s): [id number] cc: Amara Ho; [facility] Reason for Exam: N20.0 - Calculus of [...] OV> 03/14/25 1428 DD/ 1356 TD/TT: 03/14/251424 Dowel Pointer: [facility] External Provider IMG US PROCEDURES Final Result * BI Mammogram Screening Tomosynthesis Bilateral (06/25/2024 10:30 AM EST) Anatomical Region Laterality Modality Breast Bilateral Mammography 06/25/2024 10:3 0 AM EST Narrative 07/05/2024 12:55 PM EST [facility]'[address] [place] [address] Mammography Report Signed Patient: Angelia Tucker MR#: [id number] : 1970 Acct:[id number] Age/Sex: 54 / F ADM Date: 06/25/24 Loc: HOBashirMAMMO Attending Dr: Yohana Bauer REFRIGERATION MECHANIC Ordering Physician: Yohana Bauer REFRIGERATION MECHANIC Results: 1Nega tive Date of Service: 06/25/24 Follow Up: 1 Year From [facility] Mammogram Procedure(s): MM tomosynthesis screening BI Accession Number(s): [id number] cc: Yohana Bauer REFRIGERATION MECHANIC EXAMINATION: MM SCREENING DIGITAL BREAST TOMOSYNTHESIS, BILATERAL [...] by: Nita Robles DO 07/05/2024 12:52 PM [facility] Dictated By: Nita Robles DO Signed By: <Electronically signed by Nita Robles DO in OV> 07/05/24 1252 DD/ 1030 TD/TT: 06/25/24 1058 Dowel Pointer: Procedure Note Donotuseinterpreter, Image - 07/05/2024 [place] [facility] [address] [place], [place] [address] Mammography Report Signed Patient: Angelia Tucker DMR#: [id number] : 1970Acct:[id number] Age/Sex: 54 / FADM Date: 06/25/24 Loc: MAMMO Attending Dr: Yohana Bauer REFRIGERATION MECHANIC Ordering Physician: Yohana Bauer FNPResults: 1Nega tive Date of Service: 06/25/24Follow Up: 1 Year From Orig inal Mammogram Procedure(s): MM tomosynthesis screening BI Accession Number(s): [id number] cc: Yohana Bauer REFRIGERATION MECHANIC EXAMINATION: MM SCREENING DIGITAL BREAST TOMOSYNTHESIS, BILATERAL [...] 07/05/24 1252 DD/ 1030 TD/TT: 06/25/24 1058 Dowel Pointer: [facility] REFRIGERATION MECHANIC IMG BI PROCEDURES Final Resul t * (ABNORMAL) Lipid Panel, Standard (05/25/2023 9:57 AM EST) Triglycerides 114 <150 mg/dL [facility] Comment:Desirable Triglyceri de: less than 150 mg/dLBorderline High Triglyceride 150-199 mg/dLHigh Triglyceride: 200-499 mg/dLVery High Triglyceride: greater than or equal to 5OO mg/dL Cholesterol 265(H) <200 mg/dL [facility] Comment:Desirable Cholestero l: less than 200 mg/dLBorderline High Cholesterol: 200-239 mg/dLHigh Cholesterol: greater than 239 mg/dL LDL Cholesterol Calculated 182(H) <100 mg/dL [facility] Comment:Desirable LDL: less than 100 mg/dLNear Optimal/Above Optimal LDL: 110- 129 mg/dLBorderline High LDL: 130-159 mg/dLHigh LDL: 160-189 mg/dLVery High LDL: greater than or equal to 190 mg/dL HDL Cholesterol 61 >40 mg/dL [facility] Comment:Desirable HDL: great er than 40 mg/dL Note: This HDL assay may give artificially low results in patients with liver disease. Blood Venous blood specimen / Unknown 05/25/2023 9:57 AM EST 05/25/2023 1:33 PM EST [facility] REFRIGERATION MECHANIC LAB BLOOD ORDERABLES Final Re sult [facility] [address] [place] [address] [phone] * HEPATITIS C AB W/REFL TO HCV RNA, QN, PCR (12/27/2021 10:31 AM EDT) HEPATITIS C ANTIBODY NON-REACT CLARISSE NON-REACT CLARISSE [facility] INDEX 0.11 <1.00 [facility] Comment: HCV antibody was non-reactive. There is no laboratory evidence of HCV infection. In most cases, no further action is required. However, if recent HCV exposure is suspected, a test for HCV RNA (test code 03709) is suggested. For additional information please refer to http://[employer]/faq/KVR33h5 (This link is being provided for informational/ educational purposes only.) 12/27/2021 10:3 1 AM EDT Kamala Gregory [facility] HISTORICAL/NON ORDERABLE LABS Final Result Performing Organization Address City/[facility] Co de Phone Number [facility] [address] * HIV 1/2 ANTIGEN/ANTIBODY,FOURTH GENERATION W/RFL (12/27/2021 10:31 AM EDT) HIV-1/2 ANTIGEN AND ANTIBODIES, 4TH GENERATION W/ REFLEX NON-REACT CLARISSE NON-REACT CLARISSE [facility] Comment: HIV-1 antigen and HIV-1/HIV-2 [...] purpose. For additional information please refer to http://education.[employer].com/faq/QGI127 (This link is being provided for informational/ educational purposes only.) The performance of this assay has not been clinically validated in patients less than 2 years old. 12/27/2021 10:3 1 AM EDT us Kamala Gregory HOUSE CARPENTER HELPER LAB BLOOD ORDERABLES Final Res ult [facility] [address] from Last 3 Months or Most Recently Relevant to Health Maintenance [place] [address] [facility] < [address] [place] [phone] * Guarantor: Angelia Tucker Account Type Relation to Patient Date of Phone Billing Address Personal/[place] [address] * Guarantor: Angelia Tucker Account Type Relation to Patient Date of Phone Billing Address Personal/[place] [address] * Guarantor: Angelia Tucker Account Type Relation to Patient Date of Phone Billing Address Personal/[place] [address] Care Teams Power Station Operator Relationship Specialty Start Date End Date Yohana Bauer FNP [address] [place] [address] PCP - General Family Medicine 03/15/22
--- OUTSIDE RECORDS SUMMARY | 2025-05-12 19:16 | XMS_ITS | Encounter Summary ---
Author Organization [employer] Address [address] [place] [address] 7 [place] [address] Care Team Providers Care Complaints Coordinator Name Role Phone Yohana Bauer [facility] Primary Care Provider [phone] Reason for Visit * Reason Onset Date Comments Med Refill 02/04/2023 Encounter Details Date Type Department Care Team (Late st Contact Info) Description 02/04/2023 Refill [facility] MEDICINE [address] [place], [place] [phone] Yohana Bauer [facility] [address] [place] [address] Multiple sclerosis ([facility]) Social History Tobacco Use Types [...] documented as of this encounter Care Teams Complaints Coordinator Relationship Specialty Start Date End Date Yohana Bauer FNP [address] [place] [id number] PCP - General Family Medicine 03/15/22 documented as of this encounter
--- OUTSIDE RECORDS SUMMARY | 2025-05-12 19:16 | XMS_ITS | Encounter Summary ---
Author Organization [employer] Address [address] [place] [address] 7 [place] [address] Care Team Providers Care Ham Passer Name Role Phone [facility] Primary Care Provider [phone] Reason for Visit * Reason Onset Date Comments Med Refill 08/08/2023 Encounter Details Date Type Department Care Team ([facility] st Contact Info) Description 08/08/2023 Refill [facility] MEDICINE [address] [place], [place] [phone] [place] [facility] [address] [place] [address] Multiple sclerosis ([facility]) Social History Tobacco Use [...] documented as of this encounter Care Teams Ham Passer Relationship Specialty Start Date End Date Yohana Bauer FNP [address] [place] [id number] PCP - General Family Medicine 03/15/22 documented as of this encounter
--- OUTSIDE RECORDS SUMMARY | 2025-05-12 19:16 | XMS_ITS | Encounter Summary ---
Author Organization [employer] Address [address] [place] [address] 7 [place] [address] Care Team Providers Care Oiler Helper Name Role Phone [facility] Primary Care Provider [phone] Reason for Visit * Reason Onset Date Comments Med Refill 02/13/2023 Encounter Details Date Type Department Care Team ([facility] st Contact Info) Description 02/13/2023 Refill [facility] MEDICINE [address] [place], [place] [phone] [place] [facility] [address] [place] [address] Other chronic pain Social History Tobacco Use [...] documented as of this encounter Care Teams Oiler Helper Relationship Specialty Start Date End Date Yohana Bauer FNP [address] [place] [address] PCP - General Family Medicine 03/15/22 documented as of this encounter
--- OUTSIDE RECORDS SUMMARY | 2025-05-12 19:16 | XMS_ITS | Encounter Summary ---
Author Organization [employer] Address [address] [place] [address] 7 [place] [address] Care Team Providers Care Apprenticeship Representative Name Role Phone Yohana Bauer [facility] Primary Care Provider [phone] Reason for Visit * Reason Onset Date Comments Med Refill 02/01/2023 Encounter Details Date Type Department Care Team (Late st Contact Info) Description 02/01/2023 Refill [facility] MEDICINE [address] [place], [place] [phone] Yohana Bauer [facility] [address] [place] [address] Multiple sclerosis ([facility]) Social History Tobacco Use Types [...] documented as of this encounter Care Teams Apprenticeship Representative Relationship Specialty Start Date End Date Yohana Bauer FNP [address] [place] [phone] PCP - General Family Medicine 03/15/22 documented as of this encounter
--- OUTSIDE RECORDS SUMMARY | 2025-05-12 19:17 | XMS_ITS | Encounter Summary ---
Author Organization [employer] Address [address] [place] [address] 7 [place] [address] Care Team Providers Care Social Media Senior Associate Name Role Phone [facility] Primary Care Provider Reason for Visit * Reason Onset Date Comments Med Refill 11/07/2023 Encounter Details Date Type Department Care Team ([facility] st Contact Info) Description 11/07/2023 Refill [facility] MEDICINE [address] [place], [place] [phone] [place] [facility] [address] [place] [address] Multiple sclerosis ([facility]) Social History Tobacco Use Types Packs/Day [...] documented as of this encounter Care Teams Social Media Senior Associate Relationship Specialty Start Date End Date Yohana Bauer FNP [address] [place] [phone] PCP - General Family Medicine 03/15/22 documented as of this encounter
--- OUTSIDE RECORDS SUMMARY | 2025-05-12 19:17 | XMS_ITS | Encounter Summary ---
Author Organization [employer] Address [address] [place] [address] [address] [place] [address] Care Team Providers Care Sanitation Supervisor Name Role Phone NunezYohana ERICK Primary Care Provider [phone] Encounter Details Date Type Department Care Team ([facility] st Contact Info) Description 06/08/2022 Orders Only [facility] MEDICINE [address] [place] [address] Kinsey Cedeno LPN Social History Tobacco Use [...] on filedocumented in this encounter Care Teams Sanitation Supervisor Relationship Specialty Start Date End Date Yohana Bauer FNP [address] [place] [address] PCP - General Family Medicine 03/15/22 documented as of this encounter
== END 2025-05-12 14:01 | disposition home or self-care (01) ==
LOC: HO.HUSH 13:18
PROVIDERS: PCP Registered Nurse; Visit Provider Nurse Practitioner Family
DX: N20.0 Calculus of kidney (principal); N30.10 Interstitial cystitis (chronic) without hematuria
CPT/HCPCS: 99213; G2211

== ENCOUNTER → 2025-05-12 13:17 | Outpatient (BNVA) | payer OTHER, SELFPAY | PROVIDERS: PCP Registered Nurse; Visit Provider Nurse Practitioner Family | DX: N20.0 Calculus of kidney (principal); N30.10 Interstitial cystitis (chronic) without hematuria | CPT/HCPCS: 99212 ==